=== PATIENT | male | born 1945 | race Caucasian/White ===

== ENCOUNTER → 2016-10-29 | Outpatient (CLI) | payer MEDICARE, MEDICAID ==
--- NOTE | 2016-10-29 11:10 | RADIOLOGY REPORT (SQ) ---
EXAM DESCRIPTION: MRI HEAD COMBO COMPLETED DATE/TIME: 10/29/2016 10:26 am REASON FOR STUDY: DIZZINESS, TIA, SEIZURES R42 DIZZINESS AND GIDDINESS G45.9 TRANSIENT CEREBRAL IS CHEMIC ATTACK, UNSPECIFIED R56.9 UNSPECIFIED CONVULSIONS COMPARISON: Carotid Doppler same date TECHNIQUE: Multiplanar imaging includes noncontrasted T1, T2, FLAIR, diffusion with ADC map and post gadolinium contrast T1 sequences. Images stored on PACS. CONTRAST TYPE AND DOSE: 15 mL Multihance. RENAL FUNCTION: GFR > 60. LIMITATIONS: None. FINDINGS: ANATOMY: No anomalies. Normal vascular flow voids. Pituitary fossa normal. CSF SPACES: Normal in size and contour. No hemorrhage. CEREBRUM: Tiny chronic appearing lacunar infarct in the right caudate on coronal T2 image 13 and axia l T2 image 17. The Sulci and gyri normal in size and contour. Normal white matter signal on FLAIR im aging. No evidence of hemorrhage, mass, or extraaxial fluid collection. No abnormal enhancement post contrast. POSTERIOR FOSSA: No signal alteration. No hemorrhage. No edema, masses, or mass effect. Internal jacobo tory canals, cerebellopontine angles, mastoids normal. No enhancing lesions. No abnormal enhancement post contrast. DIFFUSION IMAGING: Negative for acute or subacute infarction. ORBITS: No masses. Globes post cataract surgery. PARANASAL SINUSES: No fluid levels. Mucosa normal. OTHER: No other significant finding. IMPRESSION: TINY CHRONIC APPEARING LACUNAR INFARCT RIGHT CAUDATE. OTHERWISE, NORMAL MRI OF THE BRAIN WITHOUT AND WITH INTRAVENOUS GADOLINIUM CONTRAST. TECHNICAL DOCUMENTATION: JOB ID: [id number] [employer]- All Rights Reserved
--- NOTE | 2016-10-29 15:03 | CAROTID DOPPLER PRO FEE REPORT ---
CAROTID DUPLEX DOPPLER REPORT [id number] ROOM#: DATE OF STUDY: 10/29/2016 DATE OF : 1945 REFERRING MD: FESTUS BECKHAM M.D. ORDER NO: [id number] TECHNOLOGIST: Gricelda Guzmán INDICATION: Dizziness. STUDY: The color carotid duplex scan was performed with real time images and real time Doppler velocity measurements. Real time images indicated bilateral mild heterogenous plaque formation, regular in nature. Doppler velocity measurements were as follows: MEASUREMENT: RIGHT LEFT CCA PSV (prox/mid) 72 cm/sec 93 cm/sec CCA PSV (distal) 58 cm/sec 26 cm/sec CCA EDV (prox/mid) 19 cm/sec 24 cm/sec CCA EDV (distal) 17 cm/sec 23 cm/sec ICA PSV (proximal) 58 cm/sec 53 cm/sec ICA PSV (distal) 71 cm/sec 84 cm/sec ICA EDV (proximal) 18 cm/sec 14 cm/sec ICA EDV (distal) 27 cm/sec 30 cm/sec ECA 67 cm/sec 78 cm/sec ICA/CCA RATIO: 1.2 on the right and 1.1 on the left. Vertebrals are patent. Flow is cephalad. FINAL IMPRESSION: MILD BILATERAL PLAQUE FORMATION, LESS THAN 50% STENOTIC FLOW. INTERPRETING PHYSICIAN: FESTUS BECKHAM M.D. /: PADMINI TT: [id number] ID: [id number] /: [id number] TD: 1319 JOB: [id number] cc:FESTUS BECKHAM M.D. >
== END ==
LOC: RAD 09:28
PROVIDERS: ATTEND Specialist
DX: R42 Dizziness and giddiness (principal); G45.9 Transient cerebral ischemic attack, unspecified; R56.9 Unspecified convulsions
CPT/HCPCS: 82565; 93880 ×2; 70553; A9577

== ENCOUNTER 2017-12-23 05:17 | Day surgery (SDC) | payer MEDICARE, MEDICAID ==
[2017-12-21 12:38] LABS: HEMATOCRIT 45.4 % (37.9-51.0); HEMOGLOBIN 15.3 g/dL (13.5-17.0); MEAN CORPUSCULAR HEMOGLOBIN 27.4 pg (27.0-33.4); MEAN CORPUSCULAR HGB CONC 33.7 g/dL (32.0-36.0); MEAN CORPUSCULAR VOLUME 82 fl (80-97); PLATELET COUNT 263 10^3/uL (150-450); RED BLOOD COUNT 5.57 10^6/uL (4.35-5.55); RED CELL DISTRIBUTION WIDTH 15.3 % (11.5-14.0); WHITE BLOOD COUNT 10.4 10^3/uL (4.0-10.5)
[2017-12-21 12:39] LABS: AMORPHOUS SEDIMENT,URINE TRACE /HPF; APPEARANCE,URINE CLOUDY; BILIRUBIN,URINE NEGATIVE (NEGATIVE); COLOR,URINE YELLOW; GLUCOSE, URINE NEGATIVE (NEGATIVE); KETONES,URINE NEGATIVE (NEGATIVE); LEUKOCYTE ESTERASE,URINE NEGATIVE (NEGATIVE); NITRITE,URINE NEGATIVE (NEGATIVE); PROTEIN,URINE 30 mg/dL (NEGATIVE)
[2017-12-21 13:00] LABS: ANION GAP 13 (5-19); BLOOD UREA NITROGEN 20 mg/dL (7-20); CALCIUM 9.5 mg/dL (8.4-10.2); CARBON DIOXIDE 31 mmol/L (22-30); CHLORIDE 103 mmol/L (98-107); GLUCOSE 86 mg/dL (75-110); POTASSIUM 4.3 mmol/L (3.6-5.0); SODIUM 146.5 mmol/L (137-145)
--- NOTE | 2017-12-21 14:15 | RADIOLOGY REPORT (SQ) ---
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 TECHNIQUE: Frontal and lateral radiographic views of the chest acquired. LIMITATIONS: None. FINDINGS: LUNGS AND PLEURA: No opacities, masses or pneumothorax. No pleural effusion. Attenuated bl ood vessels and flattened trista-diaphragms. MEDIASTINUM AND HILAR STRUCTURES: No masses. No contour abnormalities. HEART AND VASCULAR STRUCTURES: Heart normal in size and contour. No evidence for failure. BONES: No acute findings. HARDWARE: None in the chest. OTHER: No other significant finding. IMPRESSION: COPD. NO ACUTE RADIOGRAPHIC FINDING IN THE CHEST. TECHNICAL DOCUMENTATION: JOB ID: [id number] [employer]- All Rights Reserved Reading location - IP/workstation name: [facility]
--- NOTE | 2017-12-22 00:15 | EKG REPORT ---
SEVERITY:- ABNORMAL ECG - SINUS RHYTHM LEFT ANTERIOR FASCICULAR BLOCK : Confirmed by: Geovanna Pepper MD 22-Dec-2017 00:14:51
[~2017-12-23 05:17] MED LIST: CEFAZOLIN 2 GM/D5W RTU 2 GM/50 ML RTUPB IV PRN; LACTATED RINGERS 1000 ML IV PRN; LIDOCAINE 0.5% INJ-PF (5 MG/ML) 50 ML SDV SUBCUT PRN
[2017-12-23] MEDS ORDERED: ALBUTEROL SULFATE 0.083% NEB 2.5 MG/3 ML AMPUL NEB ONE (06:21)
[2017-12-23] MEDS ORDERED: BUPIVACAINE HCL 0.5 % INJ/PF 30 ML SDV ONE (06:39)
[2017-12-23] MEDS ORDERED: LIDOCAINE 2% INJ-PF (20 MG/ML) 10 ML AMPUL ONE (06:56)
[2017-12-23] MEDS ORDERED: ACETAMINOPHEN 1,000 MG/100 ML RTUPB IV ONE (06:57)
[2017-12-23] MEDS ORDERED: PROPOFOL INJ 200 MG/20 ML VIAL IV ONE (06:57)
[2017-12-23] MEDS ORDERED: HYDROMORPHONE HCL INJ/PF 2 MG/ML AMPULE ONE (06:57)
[2017-12-23] MEDS ORDERED: MIDAZOLAM 2 MG/2 ML INJ ONE (06:57)
[2017-12-23] MEDS ORDERED: PROMETHAZINE HCL INJ 25 MG/1 ML VIAL IV PRN ×2 (08:16)
[2017-12-23] MEDS ORDERED: MEPERIDINE HCL/PF INJ 25 MG/1 ML DISP.SYRIN IV PRN (08:16)
[2017-12-23] MEDS ORDERED: FENTANYL CITRATE INJ/PF 100 MCG/2 ML AMPUL IV PRN ×3 (08:16)
[2017-12-23] MEDS ORDERED: OXYCODONE-ACETAMINOPHEN 5-325 MG TABLET PO PRN ×3 (08:16→09:44)
[2017-12-23] MEDS ORDERED: DIPHENHYDRAMINE HCL 50 MG/ML VIAL IV PRN (08:16)
[2017-12-23] MEDS ORDERED: ONDANSETRON HCL INJ/PF 4 MG/2 ML SDV IV PRN (08:16)
--- NOTE | 2017-12-23 09:44 | Discharge Summary ---
Discharge Summary (SDC) - Discharge Final Diagnosis: Left cubital tunnel release Date of Surgery: 12/23/17 Discharge Date: 12/23/17 Condition: Good Treatment or Instructions: Sling for comfort. Keep the dressing dry clean and intact for 4 days. Can remove and then take showers. Avoid heavy lifting carrying. Follow-up in 10-14 days. Prescriptions: Tramadol HCl 50 mg PO Q6HP PRN #30 tablet PRN Reason: For Pain Referrals: ROSI VILLALBA MD [Primary Care Provider] - Discharge Diet: As Tolerated Respiratory Treatments at Home: Deep Breathing/Coughing Discharge Activity: No Lifting/Push/Pulling, Slowly Increase Activity, Walk Frequently Home Care Assistance: None Needed Report the Following to Your Physician Immediately: Shortness of Breath, Nausea , Vomiting, Fever over 101 Degrees, Unusual Bleeding, Redness, Swelling, Warmth , Increased Soreness, Drainage-Yellow, Drainage-Harden, Drainage-Green, Drainage- Foul Smelling
[2017-12-23 11:22] VITALS: BP 123/72
[2017-12-23] MEDS ORDERED: DEXAMETHASONE SOD PHOSPHATE INJ 4 MG/1 ML VIAL ONE (14:05)
[2017-12-23] MEDS ORDERED: SUCCINYLCHOLINE CHLORIDE INJ 200 MG/10 ML VIAL ONE (14:05)
[2017-12-23] MEDS ORDERED: ONDANSETRON HCL INJ/PF 4 MG/2 ML SDV ONE (14:05)
[2017-12-23] MEDS ORDERED: METOCLOPRAMIDE HCL INJ/PF 10 MG/2 ML SDV ONE (14:05)
[2017-12-23] MEDS ORDERED: PHENYLEPHRINE HCL INJ/PF 10 MG/1 ML SDV ONE (14:05)
--- NOTE | 2018-01-07 13:01 | Operative Report ---
Operative Report DATE OF SURGERY: 12/23/17 PREOPERATIVE DIAGNOSIS: Left cubital tunnel syndrome POSTOPERATIVE DIAGNOSIS: Same OPERATION: Left ulnar nerve cubital tunnel release and transposition anteriorly SURGEON: JOHANA BEAR ANESTHESIA: GA TISSUE REMOVED OR ALTERED: None COMPLICATIONS: None ESTIMATED BLOOD LOSS: Less than 20 mL INTRAOPERATIVE FINDINGS: As above PROCEDURE: Patient was brought to the operating room where he was induced and intubated in supine position. Left upper extremity was prepped and draped in a normal sterile surgical fashion. Timeout was done identifying the left elbow is a correct site. Sterile tourniquet was applied to left upper extremity. Esmarch was used to exsanguinate the extremity and the tourniquet was inflated at 250 mmHg. A 3 inch incision was done just adjacent to the medial epicondyle. Dissection was done with a 15 blade and then blunt dissection with Metzenbaum scissors to the testes of cutaneous tissue. I was able to dissect down to the medial epicondyle and the conjoined tendon attachment. I was able to palpate the ulnar nerve and dissected proximally and then placed a retractor and slowly released the cubital tunnel off of the bone while protecting the nerve. I was able to release the entire tunnel and then release some of the distally into the muscle belly. When I placed the elbow in flexion the nerve was subluxed therefore decision was made to transpose the ulnar nerve. The other nerve was placed just anterior to the medial epicondyle and subcutaneously. Reapproximated the cubital tunnel to make sure he did not fall back into the old tunnel. I then proceeded to use irrigation to clean the wound and then reapproximate subcutaneous tissue with 0 Vicryl 2-0 Vicryl for the dermis and running subcuticular Monocryl for the skin. Dermabond with Steri-Strips were applied. 4 x 4 dressing and overwrapped with a soft bandage and an Matthew bandage and the tourniquet let down. Drapes were removed and the patient was awoken and sent to PACU in a stable condition.
== END 2017-12-23 11:20 | disposition home or self-care (01) ==
LOC: OROUT 05:17
PROVIDERS: ATTEND Orthopaedic Surgery
DX: G56.22 Lesion of ulnar nerve, left upper limb (principal); M62.81 Muscle weakness (generalized); M75.52 Bursitis of left shoulder; J44.9 Chronic obstructive pulmonary disease, unspecified; F17.210 Nicotine dependence, cigarettes, uncomplicated; I10 Essential (primary) hypertension; I25.2 Old myocardial infarction; E07.9 Disorder of thyroid, unspecified; M10.9 Gout, unspecified; I25.10 Atherosclerotic heart disease of native coronary artery without angina pectoris; G51.0 Bell's palsy; E78.5 Hyperlipidemia, unspecified; Z79.899 Other long term (current) drug therapy; Z86.73 Personal history of transient ischemic attack (TIA), and cerebral infarction without residual deficits; Z01.818 Encounter for other preprocedural examination
CPT/HCPCS: 93005; 36415; 85027; 80048; 81001; 71046; 93010; 64718; J2250; J3490 ×2; J1100; J2765; J1170; J2370; J0330; J2405; J2704; A9270; J0690; J0131; 1810

== ENCOUNTER → 2018-03-18 | Day surgery (SDC) | payer MEDICARE, MEDICAID ==
--- NOTE | 2018-03-18 13:51 | RADIOLOGY REPORT (SQ) ---
EXAM DESCRIPTION: ARTHRO SHOULDER INJECTION; FLUORO/NEEDLE PLACEMENT COMPLETED DATE/TIME: 03/18/2018 1:15 pm REASON FOR STUDY: S43.491D OTHER SPRAIN OF LEFT SHOULDER JOINT, SUBSEQUENT ENCOUNTER S43.491D OTHER SPRAIN OF RIGHT SHOULDER JOINT, SUBSEQUENT EN COMPARISON: None. FLUOROSCOPY TIME: 16 seconds. 1 images saved to PACS. LIMITATIONS: None. PROCEDURE: Procedure, risks, benefits and alternatives explained to patient who then gave written co nsent. The left shoulder was marked and a time out was called for correct procedure verification. Po sterior entry site marked using fluoroscopic guidance. Shoulder prepped and draped using sterile bridget hnique. Local anesthesia achieved using 1% lidocaine injection. Hypodermic needle introduced into t he joint space under direct fluoroscopic visualization. Non-ionic contrast instilled to confirm intra -articular position. Dilute gadolinium solution then injected. Needle removed and entry site covered with sterile bandage. No immediate complications noted. TECHNIQUE: Digital images acquired during fluoroscopy and stored on PACS. Patient immediately take n to the MR suite for additional imaging. INJECTION LOCATION: Posterior left shoulder. CONTRAST TYPE AND AMOUNT: 1 mL Omnipaque and 10 mL Dotarem/Saline mixture. IMPRESSION: SUCCESSFUL NEEDLE PLACEMENT AND INJECTION FOR LEFT SHOULDER MR ARTHROGRAM USING POSTERIO R APPROACH. COMMENT: Quality ID 145: Final reports for procedures using fluoroscopy that document radiation exp osure indices, or exposure time and number of fluorographic images (if radiation exposure indices are not available) TECHNICAL DOCUMENTATION: JOB ID: [id number] [employer]- All Rights Reserved Reading location - IP/workstation name: [facility]
--- NOTE | 2018-03-18 13:51 | RADIOLOGY REPORT (SQ) ---
EXAM DESCRIPTION: ARTHRO SHOULDER INJECTION; FLUORO/NEEDLE PLACEMENT COMPLETED DATE/TIME: 03/18/2018 1:15 pm REASON FOR STUDY: S43.491D OTHER SPRAIN OF LEFT SHOULDER JOINT, SUBSEQUENT ENCOUNTER S43.491D OTHER SPRAIN OF RIGHT SHOULDER JOINT, SUBSEQUENT EN COMPARISON: None. FLUOROSCOPY TIME: 16 seconds. 1 images saved to PACS. LIMITATIONS: None. PROCEDURE: Procedure, risks, benefits and alternatives explained to patient who then gave written co nsent. The left shoulder was marked and a time out was called for correct procedure verification. Po sterior entry site marked using fluoroscopic guidance. Shoulder prepped and draped using sterile bridget hnique. Local anesthesia achieved using 1% lidocaine injection. Hypodermic needle introduced into t he joint space under direct fluoroscopic visualization. Non-ionic contrast instilled to confirm intra -articular position. Dilute gadolinium solution then injected. Needle removed and entry site covered with sterile bandage. No immediate complications noted. TECHNIQUE: Digital images acquired during fluoroscopy and stored on PACS. Patient immediately take n to the MR suite for additional imaging. INJECTION LOCATION: Posterior left shoulder. CONTRAST TYPE AND AMOUNT: 1 mL Omnipaque and 10 mL Dotarem/Saline mixture. IMPRESSION: SUCCESSFUL NEEDLE PLACEMENT AND INJECTION FOR LEFT SHOULDER MR ARTHROGRAM USING POSTERIO R APPROACH. COMMENT: Quality ID 145: Final reports for procedures using fluoroscopy that document radiation exp osure indices, or exposure time and number of fluorographic images (if radiation exposure indices are not available) TECHNICAL DOCUMENTATION: JOB ID: [id number] [employer]- All Rights Reserved Reading location - IP/workstation name: [facility]
--- NOTE | 2018-03-18 14:14 | RADIOLOGY REPORT (SQ) ---
EXAM DESCRIPTION: MRI LT UPPER JOINT WITH COMPLETED DATE/TIME: 03/18/2018 1:41 pm REASON FOR STUDY: S43.491D OTHER SPRAIN OF LEFT SHOULDER JOINT, SUBSEQUENT ENCOUNTER S43.491D OTHER SPRAIN OF RIGHT SHOULDER JOINT, SUBSEQUENT EN COMPARISON: None. TECHNIQUE: Left shoulder images acquired and stored on PACS. Oblique coronal, oblique sagittal, and axial imaging to include fat sensitive sequences as T1, water sensitive sequences as FST2/STIR, and c ontrast sensitive sequences as FST1. LIMITATIONS: Motion. FINDINGS: JOINT DISTENTION: Adequate distention for interpretation. Contrast in the subacromial bur sa. BONE MARROW AND CORTEX: No significant marrow abnormality. AC JOINT: Type II acromion. Mild -moderate AC joint arthropathy. GLENOHUMERAL JOINT: Intact. Central cartilage loss. ROTATOR CUFF: Partial width full-thickness tear of the infraspinatus with contrast in the subacromial bursa. Articular surface perforation and tendinosis in the supraspinatus tendon. LABRUM AND BICEPS LABRAL COMPLEX: There is abnormal signal in the labrum extending from 12-1 o'clock to the posterior inferior labrum. Distal biceps intact. INFERIOR LABRAL COMPLEX: See above. ADJACENT SOFT TISSUES: No masses or nodes. OTHER: No other significant finding. IMPRESSION: 1. Tear involving the posterior inferior labrum superiorly to 12-1 o'clock. 2. Cuff tendinosis. Partial width tear of the infraspinatus. Articular surface perforation of the s upraspinatus. TECHNICAL DOCUMENTATION: JOB ID: [id number] [employer]- All Rights Reserved Reading location - IP/workstation name: [email or web address]
== END ==
LOC: RAD 12:29 → EDSTATUS 13:00
PROVIDERS: ATTEND Orthopaedic Surgery
DX: S43.491D Other sprain of right shoulder joint, subsequent encounter (principal); X58.XXXD Exposure to other specified factors, subsequent encounter
CPT/HCPCS: 73222; 77002; 23350; A9576

== ENCOUNTER 2018-05-19 06:28 | Day surgery (SDC) | payer MEDICARE, MEDICAID ==
[2018-05-11 09:56] LABS: HEMATOCRIT 43.5 % (37.9-51.0); HEMOGLOBIN 14.7 g/dL (13.5-17.0); MEAN CORPUSCULAR HEMOGLOBIN 27.8 pg (27.0-33.4); MEAN CORPUSCULAR HGB CONC 33.7 g/dL (32.0-36.0); MEAN CORPUSCULAR VOLUME 82 fl (80-97); PLATELET COUNT 366 10^3/uL (150-450); RED BLOOD COUNT 5.28 10^6/uL (4.35-5.55); RED CELL DISTRIBUTION WIDTH 13.7 % (11.5-14.0); WHITE BLOOD COUNT 13.7 10^3/uL (4.0-10.5)
[2018-05-11 09:59] LABS: APPEARANCE,URINE SLIGHTLY-CLOUDY; BILIRUBIN,URINE NEGATIVE (NEGATIVE); COLOR,URINE YELLOW; GLUCOSE, URINE NEGATIVE (NEGATIVE); KETONES,URINE NEGATIVE (NEGATIVE); LEUKOCYTE ESTERASE,URINE NEGATIVE (NEGATIVE); NITRITE,URINE NEGATIVE (NEGATIVE); PROTEIN,URINE 30 mg/dL (NEGATIVE); URINE SPECIFIC GRAVITY 1.016
[2018-05-11 10:21] LABS: ANION GAP 14 (5-19); BLOOD UREA NITROGEN 16 mg/dL (7-20); CALCIUM 9.4 mg/dL (8.4-10.2); CARBON DIOXIDE 26 mmol/L (22-30); CHLORIDE 103 mmol/L (98-107); GLUCOSE 158 mg/dL (75-110); POTASSIUM 3.8 mmol/L (3.6-5.0); SODIUM 142.8 mmol/L (137-145)
--- NOTE | 2018-05-11 12:12 | RADIOLOGY REPORT (SQ) ---
EXAM DESCRIPTION: CHEST PA/LATERAL COMPLETED DATE/TIME: 05/11/2018 9:48 am REASON FOR STUDY: PRE-OP COMPARISON: Chest films 01/30/2011, 11/19/2013, 10/15/2015 EXAM PARAMETERS: NUMBER OF VIEWS: two views TECHNIQUE: Digital Frontal and Lateral radiographic views of the chest acquired. RADIATION DOSE: NA LIMITATIONS: none FINDINGS: LUNGS AND PLEURA: Obstructive lung disease with hyperinflation and hyperlucency. There is minimal right basilar bandlike atelectasis. No fluffy alveolar infiltrates worrisome for edema or pneumonia. No pleural effusion or pneumothorax . MEDIASTINUM AND HILAR STRUCTURES: No masses or contour abnormalities. HEART AND VASCULAR STRUCTURES: Heart normal size. No evidence for failure. BONES: Osteoporotic. No thoracic compression deformity HARDWARE: None in the chest. OTHER: No other significant finding. IMPRESSION: Obstructive lung disease with right basilar bandlike atelectasis TECHNICAL DOCUMENTATION: JOB ID: [id number] [email or web address]- All Rights Reserved Reading location - IP/workstation name: [email or web address]
--- NOTE | 2018-05-11 20:50 | EKG REPORT ---
SEVERITY:- ABNORMAL ECG - SINUS RHYTHM INFERIOR INFARCT, AGE INDETERMINATE : Confirmed by: Geovanna Pepper MD 11-May-2018 20:50:22
[2018-05-19] MEDS ORDERED: CEFAZOLIN 2 GM/D5W RTU 2 GM/50 ML RTUPB IV ONE (06:32)
[2018-05-19] MEDS ORDERED: PROPOFOL INJ 200 MG/20 ML VIAL IV ONE (07:03)
[2018-05-19] MEDS ORDERED: HYDROMORPHONE HCL INJ/PF 2 MG/ML AMPULE ONE (07:03)
[2018-05-19] MEDS ORDERED: EPHEDRINE SULFATE INJ 50 MG/1 ML AMPULE ONE (07:03)
[2018-05-19] MEDS ORDERED: ACETAMINOPHEN 1,000 MG/100 ML RTUPB IV ONE (07:03)
[2018-05-19] MEDS ORDERED: FENTANYL CITRATE INJ/PF 100 MCG/2 ML AMPUL ONE (07:03)
[2018-05-19] MEDS ORDERED: MIDAZOLAM 2 MG/2 ML INJ ONE (07:03)
[2018-05-19] MEDS ORDERED: ALBUTEROL SULFATE 0.083% NEB 2.5 MG/3 ML AMPUL NEB ONE (07:10)
[2018-05-19] MEDS ORDERED: BUPIVACAINE HCL 0.5 % INJ/PF 30 ML SDV ONE (09:51)
[2018-05-19] MEDS ORDERED: EPINEPHRINE INJ/PF 1 MG/1 ML AMPULE ONE (09:51)
[2018-05-19] MEDS ORDERED: PROMETHAZINE HCL INJ 25 MG/1 ML VIAL IV PRN ×2 (10:52)
[2018-05-19] MEDS ORDERED: DIPHENHYDRAMINE HCL 50 MG/ML VIAL IV PRN (10:52)
[2018-05-19] MEDS ORDERED: FENTANYL CITRATE INJ/PF 100 MCG/2 ML AMPUL IV PRN ×3 (10:52)
[2018-05-19] MEDS ORDERED: MEPERIDINE HCL/PF INJ 25 MG/1 ML DISP.SYRIN IV PRN (10:52)
[2018-05-19] MEDS ORDERED: MORPHINE SULFATE 10 MG/ML INJ IV PRN (10:52)
[2018-05-19] MEDS ORDERED: OXYCODONE-ACETAMINOPHEN 5-325 MG TABLET PO PRN ×2 (12:30)
--- NOTE | 2018-05-19 12:30 | Discharge Summary ---
Discharge Summary (SDC) - Discharge Final Diagnosis: Left rotator cuff repair and biceps tenodesis Date of Surgery: 05/19/18 Discharge Date: 05/19/18 Condition: Good Treatment or Instructions: Patient is instructed to follow up in 10-14 days. Patient instructed to remove dressing in 4 days then can shower and apply Band- Aids as needed. Patient to wear sling for comfort but okay to remove for shower and pendulum exe rcises. Pendulum exercises are instructed to be done 3 times a day ideally with breakfast, lunch, dinners and showers. Patient instructed to call if there is any signs of redness or drainage fevers or chills. Prescriptions: Oxycodone HCl/Acetaminophen [Percocet 5-325 mg Tablet] 1 - 2 tab PO ASDIR PRN #40 tablet PRN Reason: Referrals: ROSI VILLALBA MD [Primary Care Provider] - Respiratory Treatments at Home: Deep Breathing/Coughing Discharge Activity: No Driving - While taking narcotics, No Lifting/Push/Pulling, Walk Frequently Home Care Assistance: None Needed Report the Following to Your Physician Immediately: Shortness of Breath, Vom iting, Increase in Pain, Fever over 101 Degrees, Unusual Bleeding, Redness, Increased Soreness, Drainage-Yellow, Drainage-Harden, Drainage-Green, Drainage- Foul Smelling
--- NOTE | 2018-05-19 12:35 | Operative Report ---
Operative Report DATE OF SURGERY: 05/19/18 PREOPERATIVE DIAGNOSIS: left shoulder high-grade rotator cuff tear. SLAP tear. Labral tear POSTOPERATIVE DIAGNOSIS: Same OPERATION: Left shoulder arthroscopic debridement with small rotator cuff repair and subpectoralis biceps tenodesis SURGEON: JOHANA BEAR ANESTHESIA: GA TISSUE REMOVED OR ALTERED: Portion of the long head of the biceps COMPLICATIONS: None ESTIMATED BLOOD LOSS: Less than 20 mL INTRAOPERATIVE FINDINGS: As above PROCEDURE: Patient received preoperative antibiotics and was taken to the operating room and successfully given general anesthetic. Once the patient was secured in a beachchair position the left shoulder was prepped and draped in a normal sterile surgical fashion. Timeout was done identifying the left shoulder as the correct site. A spinal needle was used to distend the capsule was dosing solution via the posterior approach. This was removed and the 11 blade was used to establish the posterior portal. Trocar was introduced and with the chatterjee of fluid show proper placement in the glenohumeral joint. Camera was introduced and the capsule was distended with sterilizing solution and the anterior portal was established under direct visualization. Through these anterior portal show that the patient had a high-grade rotator cuff tear and degenerative tearing of the anterior labrum and posterior labrum as well as a type II degenerative SLAP tear with a peelback. She was used to debride the labrum and refill the ablator was used to debride the labrum and then arthroscopic scissors were used to biceps tenotomy. I used the shaver also to debride the rotator cuff showing the partial high-grade tear. Through a lateral portal incision was able then to debris to further and the completed and make it a full tear. There was a small anterior tear of the supraspinatus tendon. I redirected the camera to the subacromial space and did a formal bursectomy. Through this portal also visualized and showed due to small rotator cuff tear. I used a fast pass scorpion to pass my fiber tape and passed both limbs through the rotator cuff and then secured it laterally with a swivel lock. Patient was taken of the repair and arthroscopic scissors were used to cut the strands. Happy with the fixation and the repair with a small rotator cuff tear so then removed the instruments and proceeded to do my 1 inch incision on the anterior aspect of the arm. Patient was taken down to the fascial layer and exposing the bicipital groove and the deltoid and pectoral attachment. I was able to successfully release the fascial tissue and I pulled the long head of biceps through my incision. I used a fiber loop to then secure the tendon from the muscular tendinous junction to about 2 cm proximal. The remaining tendon was cut and removed. The 2 strands of the fiber wire were then passed through the tenodesis button and loading and securely safely. I then proceeded to use Homans to expose the medial lateral aspect of the humerus and an [employer] to pull up on the deltoid and with a 4.0 spade tip guidepin was able to drilled a hole in the anterior cortex. Through this anterior cortex I fed the preloaded tenodesis button and successfully deployed and secured the spine intramedullary therefore securing the biceps onto the anterior cortex. Half hitch knots were done to secure the tendon further. FiberWire scissors were used to cut the remaining strands. Irrigation was used and then closure was started. 2-0 Vicryl was used to approximate the dermal layer and a 3-0 nylon for skin. The portal sites were closed with 3-0 nylon as well. The extremity was cleaned and Xeroform dressing was applied to the incisions and 4 x 4 dressing and ABD pad was applied. This was secured with Medipore tape and at that point the drapes were removed and the patient was placed in supine position and extubated successfully. Patient was placed in a sling and then sent to PACU in a stable condition.
[2018-05-19] MEDS ORDERED: OXYCODONE-ACETAMINOPHEN 5-325 MG TABLET ONE (13:30)
[2018-05-19] MEDS ORDERED: ONDANSETRON HCL INJ/PF 4 MG/2 ML SDV ONE (13:47)
[2018-05-19] MEDS ORDERED: KETOROLAC TROMETHAMINE 60 MG/2 ML SDV ONE (13:47)
[2018-05-19] MEDS ORDERED: DEXAMETHASONE SOD PHOSPHATE INJ 4 MG/1 ML VIAL ONE (13:47)
[2018-05-19] MEDS ORDERED: SUCCINYLCHOLINE CHLORIDE INJ 200 MG/10 ML VIAL ONE (13:47)
[2018-05-19 16:44] VITALS: BP 134/79
== END 2018-05-19 14:50 | disposition home or self-care (01) ==
LOC: OROUT 06:28
PROVIDERS: ATTEND Orthopaedic Surgery
DX: M75.122 Complete rotator cuff tear or rupture of left shoulder, not specified as traumatic (principal); S43.492A Other sprain of left shoulder joint, initial encounter; Z79.01 Long term (current) use of anticoagulants; J44.9 Chronic obstructive pulmonary disease, unspecified; I10 Essential (primary) hypertension; M54.12 Radiculopathy, cervical region; E78.5 Hyperlipidemia, unspecified; Z79.899 Other long term (current) drug therapy; Z86.69 Personal history of other diseases of the nervous system and sense organs; H91.92 Unspecified hearing loss, left ear; Z72.0 Tobacco use; X58.XXXA Exposure to other specified factors, initial encounter
CPT/HCPCS: 93005; 36415; 85027; 80048; 81001; 71046; 93010; 29827; 29828; C1713 ×3; J2250; J3490 ×2; J1100; J0171; J1885; A9270 ×2; J1170; J0330; J2405; J2704; J0690; J0131; 1630; J3010

== ENCOUNTER → 2018-11-26 | Outpatient (CLI) | payer MEDICARE, MEDICAID ==
--- NOTE | 2018-11-26 18:02 | RADIOLOGY REPORT (SQ) ---
EXAM DESCRIPTION: MRI CERVICAL SPINE WITHOUT COMPLETED DATE/TIME: 11/26/2018 10:28 am REASON FOR STUDY: (M54.12)RADICULOPATHY, CERVICAL REGION M54.12 RADICULOPATHY, CERVICAL REGION COMPARISON: None. TECHNIQUE: Sagittal and Axial imaging includes T1, T2, STIR and gradient echo sequences. LIMITATIONS: None. FINDINGS: ALIGNMENT: Normal. VERTEBRAE: Intact. BONE MARROW: Normal. No marrow replacement or reactive changes. DISCS: Multilevel diminished disc signal with small disc osteophyte complexes. HARDWARE: None in the spine. CORD AND BASE OF BRAIN: Inferior brain normal. The spinal cord is diffusely abnormal. Hyperintense T2 signal within the substance of the cord beginning at C2 and extending inferiorly throughout the vi sualized extent. The lower thoracic cord looks expanded and largely replaced by cystic signal. SOFT TISSUES: No soft tissue masses. C1-C2: No significant spinal stenosis. C2-C3: No significant spinal stenosis or exit foraminal stenosis. C3-C4: Mild disc osteophyte complex without central stenosis. Mild right and marked left foraminal s tenosis. C4-C5: Moderate right and marked left foraminal stenosis. C5-C6: Disc and facet disease without cord compression or high-grade central narrowing. At least mod erate bilateral foraminal stenosis. C6-C7: Disc osteophyte complex without cord compression or high-grade central narrowing. Grossly mod erate foraminal stenosis. C7-T1: No significant spinal stenosis or exit foraminal stenosis. UPPER THORACIC: Incompletely imaged. No significant spinal stenosis or exit foraminal stenosis. OTHER: No other significant finding. IMPRESSION: 1. Extensive cord abnormality. Apparent syrinx extending from C2 inferiorly into the thoracic region , full extent not evaluated. Further MRI evaluation of the thoracic cord may be warranted. Unless t he patient has previous imaging to correlate for stability, additional post contrast imaging of the t horacic and cervical spine may also be indicated. 2. No spinal stenosis. Multilevel foraminal encroachment. TECHNICAL DOCUMENTATION: JOB ID: [id number] [email or web address]- All Rights Reserved Reading location - IP/workstation name: [email or web address]
== END ==
LOC: RAD 09:55
PROVIDERS: ATTEND Orthopaedic Surgery
DX: M54.12 Radiculopathy, cervical region (principal)
CPT/HCPCS: 72141

== ENCOUNTER → 2019-01-11 | Outpatient (CLI) | payer MEDICARE, MEDICAID ==
--- NOTE | 2019-01-11 12:32 | RADIOLOGY REPORT (SQ) ---
EXAM DESCRIPTION: MRI HEAD WITHOUT COMPLETED DATE/TIME: 01/11/2019 9:46 am REASON FOR STUDY: SYRINGOMYELIA AND SYRINGOBULBIA G95.0 SYRINGOMYELIA AND SYRINGOBULBIA COMPARISON: 10/29/2016 TECHNIQUE: Multiplanar imaging includes non-contrasted T1, T2, FLAIR, and diffusion with ADC map seq uences. Images stored on PACS. LIMITATIONS: None. FINDINGS: ANATOMY: No anomalies. Normal vascular flow voids. Pituitary fossa normal. CSF SPACES: Normal in size and contour. No hemorrhage. CEREBRUM: Sulci and gyri normal in size and contour. There is a tiny lacunar infarction in the cauda te on the right, unchanged. Normal white matter signal on FLAIR imaging. No evidence of hemorrhage, mass, or extraaxial fluid collection. POSTERIOR FOSSA: No signal alteration. No hemorrhage. No edema, masses or mass effect. Internal jacobo tory canals, cerebello-pontine angles, mastoids normal. DIFFUSION IMAGING: Negative for acute or sub-acute infarction. ORBITS: No masses. Globes normal. PARANASAL SINUSES: No fluid levels. Mucosa normal. OTHER: No other significant finding. IMPRESSION: Tiny pre-existing lacunar infarction in the caudate on the right. The study is otherwis e normal. EVIDENCE OF ACUTE STROKE: NO. TECHNICAL DOCUMENTATION: JOB ID: [id number] [employer]- All Rights Reserved Reading location - IP/workstation name: [email or web address]
== END ==
LOC: RAD 09:01
PROVIDERS: ATTEND Neurological Surgery
DX: G95.0 Syringomyelia and syringobulbia (principal)
CPT/HCPCS: 70551

== ENCOUNTER 2019-01-30 09:58 | Observation (INO) | payer MEDICARE, MEDICAID ==
[2019-01-30] MEDS ORDERED: NORMAL SALINE 1000 ML 1,000 ML IV ONE (10:37)
--- NOTE | 2019-01-30 10:39 | ER Document Report ---
ED Medical Screen (RME) - General Chief Complaint: Dizziness Stated Complaint: DIZZY Time Seen by Provider: 01/30/19 10:29 Primary Care Provider: MAN PARRA MD [Primary Care Provider] - Follow up as needed Notes: Patient is a 73-year-old male with a history of [place], COPD, hypertension high cholesterol presents to the emergency department today with a chief complaint of dizziness. Patient states around 930 this morning he was checking out at a store when he had acute onset of dizziness. Patient states he did take a nitroglycerin that he is prescribed for chest pain which did seem to help with his dizziness. Patient states the dizziness has since improved but still present at times. Patient reports he has had diarrhea for the past 2 days and reports a lot of gas and liquid stool every 2-3 hours. Patient denies blood in his stool. Patient denies chest pain or shortness of breath. Patient reports he did have a donut for breakfast this morning. TRAVEL OUTSIDE OF THE [place] IN LAST 30 DAYS: No - Related Data Allergies/Adverse Reactions: No Known Allergies Allergy (Verified 01/30/19 09:58) Past Medical History - Social History Frequency of alcohol use: None Drug Abuse: None - Past Medical History Cardiac Medical History: Reports: Hx Heart Attack - 4 YEARS AGO, Hx Hypercholesterolemia, Hx Hypertension Denies: Hx Coronary Artery Disease - HIGH CHOL Pulmonary Medical History: Reports: Hx COPD, Hx Pneumonia - HX OF Denies: Hx Asthma, Hx Bronchitis Neurological Medical History: Denies: Hx Cerebrovascular Accident, Hx Seizures GI Medical History: Denies: Hx Hepatitis, Hx Hiatal Hernia, Hx Ulcer Musculoskeltal Medical History: Reports Hx Arthritis Infectious Medical History: Denies: Hx Hepatitis Past Surgical History: Reports: Hx Appendectomy, Hx Oral Surgery. Denies: Hx Open Heart Surgery, Hx Pacemaker - Immunizations Hx Diphtheria, Pertussis, Tetanus Vaccination: Yes History of Influenza Vaccine for 02/2017 - 07/2017 Season: No Physical Exam - Vital signs Vitals: Temp Pulse Resp BP Pulse Ox 97.5 F 85 20 115/68 93 01/30/19 10:08 01/30/19 10:08 01/30/19 10:08 01/30/19 10:08 01/30/19 10:08 - Abdominal Inspection: Normal Distension: No distension Bowel sounds: Hyperactive Tenderness: Nontender Organomegaly: No organomegaly Course - Re-evaluation Re-evalutation: 01/30/19 10:38 I have greeted and performed a rapid initial assessment of this patient. A comprehensive ED assessment and evaluation of the patient, analysis of test results and completion of the medical decision making process will be conducted by additional ED providers. - Vital Signs Vital signs: Temp Pulse Resp BP Pulse Ox 97.5 F 85 20 115/68 93 01/30/19 10:08 01/30/19 10:08 01/30/19 10:08 01/30/19 10:08 01/30/19 10:08 Doctor's Discharge - Discharge Referrals: MAN PARRA MD [Primary Care Provider] - Follow up as needed
[2019-01-30 11:24] LABS: ABSOLUTE BASOPHILS # (AUTO) 0.1 10^3/uL (0.0-0.2); ABSOLUTE EOSINOPHILS # (AUTO) 0.5 10^3/uL (0.0-0.6); ABSOLUTE LYMPHOCYTES (AUTO) 2.4 10^3/uL (0.5-4.7); ABSOLUTE MONOCYTES (AUTO) 1.1 10^3/uL (0.1-1.4); ABSOLUTE NEUT (AUTO) 5.2 10^3/uL (1.7-8.2); BASOPHILS % (AUTO) 1.2 % (0-2); EOSINOPHILS % (AUTO) 5.2 % (0-6); HEMATOCRIT 44.1 % (37.9-51.0); HEMOGLOBIN 14.8 g/dL (13.5-17.0); LYMPHOCYTES % (AUTO) 25.8 % (13-45); MEAN CORPUSCULAR HEMOGLOBIN 27.5 pg (27.0-33.4); MEAN CORPUSCULAR HGB CONC 33.6 g/dL (32.0-36.0); MEAN CORPUSCULAR VOLUME 82 fl (80-97); MONOCYTES % (AUTO) 11.5 % (3-13); PLATELET COUNT 274 10^3/uL (150-450); RED BLOOD COUNT 5.38 10^6/uL (4.35-5.55); RED CELL DISTRIBUTION WIDTH 13.9 % (11.5-14.0); SEGMENTED NEUTROPHILS % (AUTO) 56.3 % (42-78); TOTAL CELLS COUNTED % (AUTO) 100 %; WHITE BLOOD COUNT 9.2 10^3/uL (4.0-10.5)
--- NOTE | 2019-01-30 11:33 | ER Document Report ---
ED General - General Chief Complaint: Dizziness Stated Complaint: DIZZY Time Seen by Provider: 01/30/19 10:29 Notes: 73-year-old male with a smoking history as well as hypertension hyperlipidemia presents with an episode of dizziness. He was at the hardware store felt like he was going to fall over. He had to grab onto the counter to stay up. He also says that his right leg felt like it was slipping and sliding on the ground. Did not happen to his left leg, or his other extremities. It lasted about an hour and a half and is now improving in the ED. He denies blurry vision or headache nausea vomiting or numbness or tingling. Tell me that he was diagnosed "with fluid in my spinal canal." He has no idea what this means or why. TRAVEL OUTSIDE OF THE [place] IN LAST 30 DAYS: No - Related Data Allergies/Adverse Reactions: No Known Allergies Allergy (Verified 01/30/19 09:58) Past Medical History - Social History Smoking Status: Current Every Day Smoker Frequency of alcohol use: None Drug Abuse: None Family History: Reviewed & Not Pertinent Patient has suicidal ideation: No Patient has homicidal ideation: No - Past Medical History Cardiac Medical History: Reports: Hx Heart Attack - 4 YEARS AGO, Hx Hypercholesterolemia, Hx Hypertension Denies: Hx Coronary Artery Disease - HIGH CHOL Pulmonary Medical History: Reports: Hx COPD, Hx Pneumonia - HX OF Denies: Hx Asthma, Hx Bronchitis Neurological Medical History: Denies: Hx Cerebrovascular Accident, Hx Seizures GI Medical History: Denies: Hx Hepatitis, Hx Hiatal Hernia, Hx Ulcer Musculoskeletal Medical History: Reports Hx Arthritis Infectious Medical History: Denies: Hx Hepatitis Past Surgical History: Reports: Hx Appendectomy, Hx Oral Surgery. Denies: Hx Open Heart Surgery, Hx Pacemaker - Immunizations Hx Diphtheria, Pertussis, Tetanus Vaccination: Yes Hx Pneumococcal Vaccination: 02/28/17 Review of Systems - Review of Systems Notes: REVIEW OF SYSTEMS GEN: Denies fever, chills, weight loss ENT: Denies sore throat, nasal discharge, ear pain EYES: Denies blurry vision, eye pain, discharge CV: Denies chest pain, palpitations, edema RESP: Denies cough, shortness of breath, wheezing GI: Denies abdominal pain, nausea, vomiting, diarrhea MSK: Denies joint pain/swelling, edema, SKIN: Denies rash, skin lesions LYMPH: Denies swollen glands/lymph nodes NEURO: Right leg weakness versus and coordination dizziness PSYCH: Denies depression, suicidal or homicidal ideation PHYSICAL EXAMINATION General: No acute distress, well-nourished Head: Atraumatic, normocephalic ENT: Mouth normal, oropharynx moist, no exudates or tonsillar enlargement Eyes: Conjunctiva normal, pupils equal, lids normal Neck: No JVD, supple, no guarding CVS: Normal rate, regular rhythm, no murmurs Resp: No resp distress, equal and normal breath sounds bilaterally GI: Nondistended, soft, no tenderness to palpation, no rebound or guarding Ext: No deformities, no edema, normal range of motion in upper and lower ext Back: No CVA or midline TTP Skin: No rash, warm Lymphatic: No lymphadeopathy noted Neuro: Awake, alert. Face symmetric. GCS 15. Cranial nerves II through XII intact. No nystagmus. No dysmetria or dysdiadochokinesia, normal rapid altering movements and normal strength sensationin all 4 extremities. Physical Exam - Vital signs Vitals: Temp Pulse Resp BP Pulse Ox 97.5 F 85 20 115/68 93 01/30/19 10:01/30/19 10:01/30/19 10:01/30/19 10:08 01/30/19 10:08 Course - Re-evaluation Re-evalutation: 01/30/19 11:33 Patient presents with episode of what sounds like vertigo with right lower extreme the symptoms which could either have been weakness or incoordination. I am concerned mostly for a posterior circulation TIA. Will get head CT CTA head and neck. If negative patient will be transferred for MRI. Does not meet criteria for stroke lysis at this time. Is not on blood thinners with no A. fib. He does have multiple risk factors for stroke. 01/30/19 13:14 Imaging is negative. The patient's symptoms did not recur and his stroke score is 0. He was discussed with Dr. Shaikh for admission for TIA work-up Georgina - Vital Signs Vital signs: Temp Pulse Resp BP Pulse Ox 97.5 F 85 20 115/68 93 01/30/19 10:08 01/30/19 10:08 01/30/19 10:08 01/30/19 10:08 01/30/19 10:08 - Laboratory Result Diagrams: 01/30/19 10:58 01/30/19 10:58 Laboratory results interpreted by me: 01/30/19 10:58 Alkaline Phosphatase 153 H - Diagnostic Test Radiology reviewed: Pending, Image reviewed, Reports reviewed Discharge - Discharge Clinical Impression: TIA (transient ischemic attack) Condition: Good Disposition: ADMITTED OBSERVATION Admitting Provider: Georgina (Hospitalist) Unit Admitted: Telemetry
[2019-01-30 11:38] LABS: ALBUMIN 4.2 g/dL (3.5-5.0); ALKALINE PHOSPHATASE 153 U/L (38-126); ANION GAP 9 (5-19); ASPARTATE AMINO TRANSFERASE 32 U/L (17-59); BILIRUBIN,DIRECT 0.3 mg/dL (0.0-0.4); BILIRUBIN,TOTAL 0.8 mg/dL (0.2-1.3); BLOOD UREA NITROGEN 19 mg/dL (7-20); CALCIUM 9.7 mg/dL (8.4-10.2); CARBON DIOXIDE 28 mmol/L (22-30); CHLORIDE 104 mmol/L (98-107); GLUCOSE 106 mg/dL (75-110); POTASSIUM 4.7 mmol/L (3.6-5.0); TOTAL PROTEIN 8.2 g/dL (6.3-8.2)
--- NOTE | 2019-01-30 12:29 | RADIOLOGY REPORT (SQ) ---
EXAM DESCRIPTION: CTA HEAD; CTA NECK COMPLETED DATE/TIME: 01/30/2019 12:16 pm REASON FOR STUDY: stroke COMPARISON: None. TECHNIQUE: Axial dynamic scanning technique with dynamic contrast enhancement through the extra-scrap metal burner nial carotid and vertebral arteries and [place] of [place]. Multiplanar reconstruction. 3-D MIPS and Volume-rendered images acquired at the workstation and saved to PACS. Images are reviewed in soft tissue, bone, lung windows. All CT scanners at this facility use dose modulation, iterative reconstruction, and/or weight based d osing when appropriate to reduce radiation dose to as low as reasonably achievable (ALARA). [facility]: Dose Right [facility]: CareDose [facility]: Dose Right [facility]: Teradose 4D [facility]: [email or web address] CONTRAST TYPE AND DOSE: contrast/concentration: Isovue 350.00 mg/ml; Total Contrast Delivered: 70.0 ml; Total Saline Delivered: 75.0 ml RENAL FUNCTION: GFR > 60. LIMITATIONS: None. FINDINGS: CTA neck -atherosclerotic aorta without gross aneurysm or dissection, limited evaluation. - normal 3 vessel origin. - bilateral common, internal and external carotid arteries are patent without suggestion of significa nt stenosis or dissection. - bilateral patent vertebral arteries. - upper lobe emphysema and scarring. Soft tissues generally normal allowing for shotty neck nodes. CTA ven[place] of [place] - cerebral arteries and basilar artery look patent without gross evidence of aneurysm, stenosis or oc clusion. No enhancing lesions. OTHER: 3-D reconstructions confirm findings. IMPRESSION: 1. No carotid stenosis or dissection bilaterally. 2. No cerebral artery occlusion or aneurysm suggested. COMMENT: Quality ID #[id number]: Measurements of distal internal carotid diameter were used as the denomina tor for stenosis measurement. TECHNICAL DOCUMENTATION: JOB ID: [id number] Quality ID # 436: Final reports with documentation of one or more dose reduction techniques (e.g., Au tomated exposure control, adjustment of the mA and/or kV according to patient size, use of iterative reconstruction technique) 2010 [employer]- All Rights Reserved Reading location - IP/workstation name: [email or web address]
--- NOTE | 2019-01-30 12:29 | RADIOLOGY REPORT (SQ) ---
EXAM DESCRIPTION: CTA HEAD; CTA NECK COMPLETED DATE/TIME: 01/30/2019 12:16 pm REASON FOR STUDY: stroke COMPARISON: None. TECHNIQUE: Axial dynamic scanning technique with dynamic contrast enhancement through the extra-bottom crane operator nial carotid and vertebral arteries and [place] of [place]. Multiplanar reconstruction. 3-D MIPS and Volume-rendered images acquired at the workstation and saved to PACS. Images are reviewed in soft tissue, bone, lung windows. All CT scanners at this facility use dose modulation, iterative reconstruction, and/or weight based d osing when appropriate to reduce radiation dose to as low as reasonably achievable (ALARA). [facility]: Dose Right [facility]: CareDose [facility]: Dose Right [facility]: Teradose 4D [facility]: [employer] CONTRAST TYPE AND DOSE: contrast/concentration: Isovue 350.00 mg/ml; Total Contrast Delivered: 70.0 ml; Total Saline Delivered: 75.0 ml RENAL FUNCTION: GFR > 60. LIMITATIONS: None. FINDINGS: CTA neck -atherosclerotic aorta without gross aneurysm or dissection, limited evaluation. - normal 3 vessel origin. - bilateral common, internal and external carotid arteries are patent without suggestion of significa nt stenosis or dissection. - bilateral patent vertebral arteries. - upper lobe emphysema and scarring. Soft tissues generally normal allowing for shotty neck nodes. CTA mentasta of [place] - cerebral arteries and basilar artery look patent without gross evidence of aneurysm, stenosis or oc clusion. No enhancing lesions. OTHER: 3-D reconstructions confirm findings. IMPRESSION: 1. No carotid stenosis or dissection bilaterally. 2. No cerebral artery occlusion or aneurysm suggested. COMMENT: Quality ID #195: Measurements of distal internal carotid diameter were used as the denomina tor for stenosis measurement. TECHNICAL DOCUMENTATION: JOB ID: [id number] Quality ID # 436: Final reports with documentation of one or more dose reduction techniques (e.g., Au tomated exposure control, adjustment of the mA and/or kV according to patient size, use of iterative reconstruction technique) 2010 [employer]- All Rights Reserved Reading location - IP/workstation name: [email or web address]
--- NOTE | 2019-01-30 12:34 | RADIOLOGY REPORT (SQ) ---
EXAM DESCRIPTION: CT HEAD WITHOUT COMPLETED DATE/TIME: 01/30/2019 12:16 pm REASON FOR STUDY: stroke COMPARISON: Correlated with CTA neck and head studies from same date. TECHNIQUE: Axial images acquired through the brain without intravenous contrast. Images reviewed wi th bone, brain and subdural windows. Additional sagittal and coronal reconstructions were generated. Images stored on PACS. All CT scanners at this facility use dose modulation, iterative reconstruction, and/or weight based d osing when appropriate to reduce radiation dose to as low as reasonably achievable (ALARA). [facility]: Dose Right [facility]: CareDose [facility]: Dose Right [facility]: Teradose 4D [facility]: [employer] RADIATION DOSE: CT Rad equipment meets quality standard of care and radiation dose reduction techniq ues were employed. CTDIvol: 53.2 mGy. DLP: 991 mGy-cm. mGy. LIMITATIONS: None. FINDINGS: VENTRICLES: Normal size and contour. CEREBRUM: No masses. No hemorrhage. No midline shift. No evidence for acute infarction. Normal gra y/white matter differentiation. No areas of low density in the white matter. CEREBELLUM: No masses. No hemorrhage. No alteration of density. No evidence for acute infarction. EXTRAAXIAL SPACES: No fluid collections. No masses. ORBITS AND GLOBE: No intra- or extraconal masses. Normal contour of globe without masses. CALVARIUM: No fracture. PARANASAL SINUSES: No fluid or mucosal thickening. SOFT TISSUES: No mass or hematoma. OTHER: No other significant finding. IMPRESSION: NORMAL BRAIN CT WITHOUT CONTRAST. EVIDENCE OF ACUTE STROKE: NO. COMMENT: Quality ID # 436: Final reports with documentation of one or more dose reduction techniques (e.g., Automated exposure control, adjustment of the mA and/or kV according to patient size, use of iterative reconstruction technique) TECHNICAL DOCUMENTATION: JOB ID: [id number] [employer]- All Rights Reserved Reading location - IP/workstation name: [email or web address]
[2019-01-30 12:41] LABS: APPEARANCE,URINE CLEAR; BILIRUBIN,URINE NEGATIVE (NEGATIVE); COLOR,URINE YELLOW; GLUCOSE, URINE NEGATIVE (NEGATIVE); KETONES,URINE NEGATIVE (NEGATIVE); LEUKOCYTE ESTERASE,URINE NEGATIVE (NEGATIVE); NITRITE,URINE NEGATIVE (NEGATIVE); PROTEIN,URINE NEGATIVE (NEGATIVE); URINE SPECIFIC GRAVITY 1.011; UROBILINOGEN,URINE NEGATIVE mg/dL (<2.0)
[2019-01-30] MEDS: HEPARIN SOD (PORCINE) 5,000 UNIT/ML 1 ML VIAL SUBCUT SCH ×2 (14:16→21:13)
--- NOTE | 2019-01-30 14:20 | PDOC H&P ---
History of Present Illness Admission Date/PCP: 01/30/19 13:12 ROSI VILLALBA History of Present Illness: MYLES WARE is a 73 year old male with a history of COPD, current everyday smoker, hypertension, hyperlipidemia. He presents to the ER via private vehicle complaining of dizziness and weakness. He said he was at [employer] buying a table saw and when he was walking up to the counter to pay for it he said that he felt like his right foot kept slipping on the floor whenever he said it down. He looked down to the floor to see if it was wet but he could not see any evide nce of water or liquid on the floor. He said when he got up to the sanchez register, his legs got very wobbly and he got very dizzy. For some reason, he decided to take a nitroglycerin. He said he had that because he had a doctor tell him that years ago he had a heart attack. He did not have any chest pain whenever this episode happened. He managed to hang on to the cart and get the table saw out to his truck. He said he called a friend to come get him and his took the truck and his friend brought him to the ER. He said he thinks that the symptoms lasted in total about 45 minutes. He is never had anything like this happen before. He has no family history of stroke. His vital signs in the ER were normal. He is being admitted for further evaluation. Past Medical History Cardiac Medical History: Reports: Myocardial Infarction - 4 YEARS AGO, Hyperlipidema, Hypertension Denies: Coronary Artery Disease - HIGH CHOL Pulmonary Medical History: Reports: Chronic Obstructive Pulmonary Disease (COPD), Pneumonia - HX OF Denies: Asthma, Bronchitis Neurological Medical History: Denies: Seizures GI Medical History: Denies: Hepatitis, Hiatal Hernia Musculoskeltal Medical History: Reports: Arthritis Hematology: Denies: Anemia, Sickle Cell Disease Past Surgical History Past Surgical History: Reports: Appendectomy Denies: Pacemaker Social History Smoking Status: Current Every Day Smoker Frequency of Alcohol Use: None - Has not had a drink in 27 years Hx Recreational Drug Use: No Family History Family History: Reviewed & Not Pertinent, CAD, COPD, Hyperlipidemia, Hypertension Parental Family History Reviewed: Yes - Father in 60s of CAD, mother had alcoholism treatment early in life Children Family History Reviewed: Yes - Hypertension, hyperlipidemia Sibling(s) Family History Reviewed.: Yes - Hypertension, hyperlipidemia, substance abuse Medication/Allergy Home Medications: Atorvastatin Calcium [Lipitor 40 mg Tablet] 40 mg PO QHS 01/30/19 Cholecalciferol (Vitamin D3) [Vitamin D3 1000 Unit Tablet] 1,000 unit PO DAILY 01/30/19 Clonidine HCl [Catapres 0.2 mg Tablet] 0.2 mg PO DAILY 01/30/19 Losartan Potassium [Cozaar 100 mg Tablet] 100 mg PO DAILY 01/30/19 Allergies/Adverse Reactions: No Known Allergies Allergy (Verified 01/30/19 09:58) Review of Systems All systems: reviewed and no additional remarkable complaints except as stated - All systems were reviewed and were negative except as noted in the HPI Physical Exam Vital Signs: Temp Pulse Resp BP Pulse Ox 97.5 F 85 20 147/87 H 97 01/30/19 10:08 01/30/19 10:08 01/30/19 13:01 01/30/19 13:01 01/30/19 13:01 Intake & Output 01/29/19 01/30/19 01/31/19 06:59 06:59 06:59 Intake Total 1000 Balance 1000 Weight 75.9 kg General appearance: PRESENT: no acute distress, cooperative, disheveled Head exam: PRESENT: atraumatic, normocephalic Eye exam: PRESENT: EOMI, PERRLA. ABSENT: conjunctival injection, nystagmus, scleral icterus Ear exam: PRESENT: normal external ear exam Mouth exam: PRESENT: moist, neck supple Teeth exam: PRESENT: poor dentation Throat exam: ABSENT: post pharyngeal erythema Neck exam: PRESENT: full ROM. ABSENT: carotid bruit, JVD, lymphadenopathy, meningismus, tenderness, thyromegaly Respiratory exam: PRESENT: clear to auscultation marb[place], symmetrical, unlabored. ABSENT: accessory muscle use, chest wall tenderness, crackles, prolonged expiratory phas, rhonchi, tachypnea, wheezes Cardiovascular exam: PRESENT: RRR, +S1, +S2 Pulses: PRESENT: normal carotid pulses Vascular exam: PRESENT: normal capillary refill GI/Abdominal exam: PRESENT: normal bowel sounds, soft. ABSENT: distended, guarding, rebound, tenderness Extremities exam: ABSENT: clubbing, pedal edema Musculoskeletal exam: PRESENT: normal inspection. ABSENT: deformity Neurological exam: PRESENT: alert, awake, oriented to person, oriented to place, oriented to time, oriented to situation, CN II-XII grossly intact. ABSENT: motor sensory deficit Psychiatric exam: PRESENT: appropriate affect, normal mood Skin exam: PRESENT: dry, warm Results Laboratory Results: 01/30/19 10:58 01/30/19 10:58 01/30/19 01/30/19 01/30/19 10:58 10:58 12:24 WBC 9.2 RBC 5.38 Hgb 14.8 Hct 44.1 MCV 82 MCH 27.5 MCHC 33.6 RDW 13.9 Plt Count 274 Seg Neutrophils % 56.3 Sodium 140.5 Potassium 4.7 Chloride 104 Carbon Dioxide 28 Anion Gap 9 BUN 19 Creatinine 1.09 Est GFR ( Amer) > 60 Glucose 106 Calcium 9.7 Total Bilirubin 0.8 AST 32 Alkaline Phosphatase 153 H Total Protein 8.2 Albumin 4.2 Urine Color YELLOW Urine Appearance CLEAR Urine pH 6.0 Ur Specific [place] 1.011 Urine Protein NEGATIVE Urine Glucose (UA) NEGATIVE Urine Ketones NEGATIVE Urine Blood NEGATIVE Urine Nitrite NEGATIVE Ur Leukocyte Esterase NEGATIVE Urine WBC (Auto) 1 Urine RBC (Auto) 0 01/30/19 10:58 Troponin I < 0.012 Impressions: Head CT 01/30/19 11:30 IMPRESSION: NORMAL BRAIN CT WITHOUT CONTRAST. EVIDENCE OF ACUTE STROKE: NO. Head CTA 01/30/19 11:30 IMPRESSION: 1. No carotid stenosis or dissection bilaterally. 2. No cerebral artery occlusion or aneurysm suggested. Neck CTA 01/30/19 11:30 IMPRESSION: 1. No carotid stenosis or dissection bilaterally. 2. No cerebral artery occlusion or aneurysm suggested. Assessment and Plan - Diagnosis (1) TIA (transient ischemic attack) Is this a current diagnosis for this admission?: Yes Plan: We will continue aspirin and statin. We will watch his blood pressure. Check a lipid panel. CT without contrast of the head was negative. Head and neck CTA were negative. Get an MRI of the brain. We will get a carotid Doppler ultrasound. Have him seen by PT, OT, and speech therapy. Strongly encouraged him to stop smoking. - Time Time Spent with patient: 35 or more minutes
[2019-01-30] MEDS ORDERED: NICOTINE 21 MG/24 HR PATCH.TD24 TD ONE (18:30)
[2019-01-30] MEDS ORDERED: ATORVASTATIN CALCIUM 40 MG TABLET PO SCH (22:00)
[2019-01-31] MEDS: HEPARIN SOD (PORCINE) 5,000 UNIT/ML 1 ML VIAL SUBCUT SCH (05:36)
[2019-01-31] MEDS ORDERED: ACETAMINOPHEN 325 MG TABLET PO PRN (05:50)
[2019-01-31 06:11] LABS: HEMATOCRIT 42.9 % (37.9-51.0); HEMOGLOBIN 14.5 g/dL (13.5-17.0); MEAN CORPUSCULAR HEMOGLOBIN 27.7 pg (27.0-33.4); MEAN CORPUSCULAR HGB CONC 33.7 g/dL (32.0-36.0); MEAN CORPUSCULAR VOLUME 82 fl (80-97); PLATELET COUNT 271 10^3/uL (150-450); RED BLOOD COUNT 5.23 10^6/uL (4.35-5.55); RED CELL DISTRIBUTION WIDTH 13.7 % (11.5-14.0); WHITE BLOOD COUNT 9.8 10^3/uL (4.0-10.5)
[2019-01-31 06:26] LABS: ANION GAP 8 (5-19); BLOOD UREA NITROGEN 19 mg/dL (7-20); CALCIUM 9.2 mg/dL (8.4-10.2); CARBON DIOXIDE 23 mmol/L (22-30); CHLORIDE 108 mmol/L (98-107); CHOLESTEROL 199.97 mg/dL (0-200); GLUCOSE 95 mg/dL (75-110); POTASSIUM 4.3 mmol/L (3.6-5.0); TRIGLYCERIDES 227 mg/dL (<150)
[2019-01-31 06:36] LABS: DIRECT LDL 143 mg/dL (<100)
[2019-01-31 06:40] LABS: VLDL CHOLESTEROL 45.4 mg/dL (10-31)
--- NOTE | 2019-01-31 09:18 | RADIOLOGY REPORT (SQ) ---
EXAM DESCRIPTION: MRI HEAD WITHOUT COMPLETED DATE/TIME: 01/31/2019 8:03 am REASON FOR STUDY: tia COMPARISON: CT angio brain 01/30/2019 CT brain without contrast 01/30/2019 MRI brain 01/11/2019 MRI cervical spine 12/27/2018, 11/26/2018 TECHNIQUE: Multiplanar imaging includes non-contrasted T1, T2, FLAIR, and diffusion with ADC map seq uences. Images stored on PACS. LIMITATIONS: None. FINDINGS: ANATOMY: At the bottom edge of the field of view, a syrinx in the upper cervical spine pre sent, incompletely characterized. CSF SPACES: Normal in size and contour. No hemorrhage. CEREBRUM: No MR evidence of acute large territory ischemic change, acute intracranial hemorrhage, mas s effect, or midline shift. Diffusion-weighted images are negative for acute ischemic change. Minim al increased FLAIR/ T2 signal in the deep hemispheric white matter likely gliosis along perivascular spaces, age-appropriate. POSTERIOR FOSSA: No signal alteration. No hemorrhage. No edema, masses or mass effect. Internal jacobo tory canals, cerebello-pontine angles, mastoids normal. DIFFUSION IMAGING: Negative for acute or sub-acute infarction. ORBITS: No masses. Globes post cataract surgery bilaterally. PARANASAL SINUSES: No fluid levels. Mucosa normal. OTHER: No other significant finding. IMPRESSION: No acute findings. 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 TECHNICAL DOCUMENTATION: JOB ID: [id number] [employer]- All Rights Reserved Reading location - IP/workstation name: [email or web address]
--- NOTE | 2019-01-31 09:43 | PDOC DISCHARGE SUMMARY ---
General - Admit/Disc Date/PCP Admission Date/Primary Care Provider: 01/30/19 13:12 ROSI VILLALBA Discharge Date: 01/31/19 - Discharge Diagnosis (1) TIA (transient ischemic attack) Is this a current diagnosis for this admission?: Yes (2) HTN (hypertension) Is this a current diagnosis for this admission?: No Summary: 01/31/2019-patient blood pressure today is 46/89. Patient was advised about low- salt diet. Advised to be compliant with his home medications. (3) Hyperlipemia Is this a current diagnosis for this admission?: No Summary: 01/31/2019-patient has a history of hyperlipidemia he was advised to continue atorvastatin at home. (4) Tobacco abuse Is this a current diagnosis for this admission?: No Summary: 01/31/2019-patient is current day smoker patient was strongly advised to quit smoking. - Additional Information Resuscitation Status: Full Code Discharge Diet: Cardiac Discharge Activity: Activity As Tolerated Home Medications: Cholecalciferol (Vitamin D3) [Vitamin D3 1000 Unit Tablet] 1,000 unit PO DAILY 01/30/19 Clonidine HCl [Catapres 0.2 mg Tablet] 0.2 mg PO DAILY 01/30/19 Losartan Potassium [Cozaar 100 mg Tablet] 100 mg PO DAILY 01/30/19 Aspirin [Aspirin 81 mg Chewable Tablet] 81 mg PO DAILY tab.chew 01/31/19 Atorvastatin Calcium [Lipitor 40 mg Tablet] 40 mg PO QHS tablet 01/31/19 History of Present Illness History of Present Illness: MYLES WARE is a 73 year old male 73 year old male with a history of COPD, current everyday smoker, hypertension, hyperlipidemia. He presents to the ER via private vehicle complaining of dizziness and weakness. He said he was at [employer] a table saw and when he was walking up to the counter to pay for it he said that he felt like his right foot kept slipping on the floor whenever he said it down. He looked down to the floor to see if it was wet but he could not see any evidence of water or liquid on the floor. He said when he got up to the [employer] register, his legs got very wobbly and he got very dizzy. For some reason, he decided to take a nitroglycerin. He said he had that because he had a doctor tell him that years ago he had a heart attack. He did not have any chest pain whenever this episode happened. He managed to hang on to the cart and get the table saw out to his truck. He said he called a friend to come get him and his took the truck and his friend brought him to the ER. He said he thinks that the symptoms lasted in total about 45 minutes. He is never had anything like this happen before. He has no family history of stroke. His vital signs in the ER were normal. He is being admitted for further evaluation. Hospital Course Hospital Course: 73 year old male with a history of COPD, current everyday smoker, hypertension, hyperlipidemia. He presents to the ER via private vehicle complaining of dizziness and weakness. He said he was at [employer] buying a table saw and when he was walking up to the counter to pay for it he said that he felt like his right foot kept slipping on the floor whenever he said it down. He looked down to the floor to see if it was wet but he could not see any evidence of water or liquid on the floor. He said when he got up to the [employer] register, his legs got very wobbly and he got very dizzy. For some reason, he decided to take a nitroglycerin. He said he had that because he had a doctor tell him that years ago he had a heart attack. He did not have any chest pain whenever this episode happened. He managed to hang on to the cart and get the table saw out to his truck. He said he called a friend to come get him and his took the truck and his friend brought him to the ER. He said he thinks that the symptoms lasted in total about 45 minutes. He is never had anything like this happen before. He has no family history of stroke. His vital signs in the ER were normal. He is being admitted for further evaluation. [id number]-old male with a history of multiple medical problems including daily smoker, hypertension, hyperlipidemia, COPD recent history of stroke came to the emergency room with complaints of weakness and admitted as a TIA CT head was negative CT of the neck was negative MRI of his negative for acute pathology. Patient said he is compliant with his medications and does not require any refills from me today. He agreed to go home and follow-up with his primary care physician in 1 week time. Physical Exam Vital Signs: Temp Pulse Resp BP Pulse Ox 97.9 F 82 16 146/89 H 98 01/31/19 08:53 01/31/19 08:53 01/31/19 08:00 01/31/19 08:53 01/31/19 08:53 Intake & Output 01/30/19 01/31/19 02/01/19 06:59 06:59 06:59 Intake Total 1240 Balance 1240 Weight 75.1 kg General appearance: PRESENT: no acute distress, cooperative Head exam: PRESENT: atraumatic Eye exam: PRESENT: PERRLA Ear exam: PRESENT: normal external ear exam Mouth exam: PRESENT: moist, tongue midline Teeth exam: PRESENT: poor dentation Neck exam: ABSENT: carotid bruit, JVD, lymphadenopathy, thyromegaly Respiratory exam: PRESENT: decreased breath sounds Cardiovascular exam: PRESENT: RRR. ABSENT: diastolic murmur, rubs, systolic murmur GI/Abdominal exam: PRESENT: normal bowel sounds, soft. ABSENT: distended, guarding, mass, organolmegaly, rebound, tenderness Rectal exam: PRESENT: deferred Extremities exam: PRESENT: full ROM. ABSENT: calf tenderness, clubbing, pedal edema Psychiatric exam: PRESENT: appropriate affect, normal mood. ABSENT: homicidal ideation, suicidal ideation Results Laboratory Results: 01/31/19 05:36 01/31/19 05:36 01/30/19 01/30/19 01/30/19 10:58 10:58 12:24 WBC 9.2 RBC 5.38 Hgb 14.8 Hct 44.1 MCV 82 MCH 27.5 MCHC 33.6 RDW 13.9 Plt Count 274 Seg Neutrophils % 56.3 Sodium 140.5 Potassium 4.7 Chloride 104 Carbon Dioxide 28 Anion Gap 9 BUN 19 Creatinine 1.09 Est GFR ( Amer) > 60 Glucose 106 Calcium 9.7 Total Bilirubin 0.8 AST 32 Alkaline Phosphatase 153 H Total Protein 8.2 Albumin 4.2 Triglycerides Cholesterol LDL Cholesterol Direct VLDL Cholesterol HDL Cholesterol Urine Color YELLOW Urine Appearance CLEAR Urine pH 6.0 Ur Specific [place] 1.011 Urine Protein NEGATIVE Urine Glucose (UA) NEGATIVE Urine Ketones NEGATIVE Urine Blood NEGATIVE Urine Nitrite NEGATIVE Ur Leukocyte Esterase NEGATIVE Urine WBC (Auto) 1 Urine RBC (Auto) 0 01/31/19 01/31/19 05:36 05:36 WBC 9.8 RBC 5.23 Hgb 14.5 Hct 42.9 MCV 82 MCH 27.7 MCHC 33.7 RDW 13.7 Plt Count 271 Seg Neutrophils % Sodium 139.1 Potassium 4.3 Chloride 108 H Carbon Dioxide 23 Anion Gap 8 BUN 19 Creatinine 1.02 Est GFR ( Amer) > 60 Glucose 95 Calcium 9.2 Total Bilirubin AST Alkaline Phosphatase Total Protein Albumin Triglycerides 227 H Cholesterol 199.97 LDL Cholesterol Direct 143 H VLDL Cholesterol 45.4 H HDL Cholesterol 30 L Urine Color Urine Appearance Urine pH Ur Specific [place] Urine Protein Urine Glucose (UA) Urine Ketones Urine Blood Urine Nitrite Ur Leukocyte Esterase Urine WBC (Auto) Urine RBC (Auto) 01/30/19 10:58 Troponin I < 0.012 Impressions: Head CT 01/30/19 11:30 IMPRESSION: NORMAL BRAIN CT WITHOUT CONTRAST. EVIDENCE OF ACUTE STROKE: NO. Head CTA 01/30/19 11:30 IMPRESSION: 1. No carotid stenosis or dissection bilaterally. 2. No cerebral artery occlusion or aneurysm suggested. Neck CTA 01/30/19 11:30 IMPRESSION: 1. No carotid stenosis or dissection bilaterally. 2. No cerebral artery occlusion or aneurysm suggested. Head MRI 01/31/19 00:00 IMPRESSION: No acute findings. 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 Qualifiers - * PATIENT BEING DISCHARGED WITH ANY OF THE FOLLOWING DIAGNOSIS: No VTE patient discharged on overlapping Therapy?: No Acute Heart Failure - Is this a Heart Failure Patient?: No Plan Time Spent: Greater than 30 Minutes
[2019-01-31] MEDS ORDERED: CHOLECALCIFEROL (D3) 1,000 UNIT (25 MCG) TABLET PO SCH (10:00)
[2019-01-31] MEDS ORDERED: ASPIRIN 81 MG TABLET, CHEWABLE PO SCH (10:00)
[2019-01-31] MEDS ORDERED: NICOTINE 21 MG/24 HR PATCH.TD24 TD SCH (10:00)
[2019-01-31] MEDS ORDERED: LOSARTAN POTASSIUM 50 MG TABLET PO SCH (10:00)
[2019-01-31 11:11] VITALS: BP 149/89
--- NOTE | 2019-01-31 23:04 | EKG REPORT ---
SEVERITY:- ABNORMAL ECG - SINUS RHYTHM INFERIOR INFARCT, AGE INDETERMINATE : Confirmed by: Ulisses Brown 31-Jan-2019 23:04:22
== END 2019-01-31 12:31 | disposition home or self-care (01) ==
LOC: ER 09:58 → EH 13:12 → 3S 16:29
PROVIDERS: ADMIT Internal Medicine; ATTEND Internal Medicine
DX: G45.9 Transient cerebral ischemic attack, unspecified (principal); I10 Essential (primary) hypertension; E78.5 Hyperlipidemia, unspecified; I25.2 Old myocardial infarction; F17.200 Nicotine dependence, unspecified, uncomplicated; R19.7 Diarrhea, unspecified; R14.3 Flatulence; R26.2 Difficulty in walking, not elsewhere classified; Z79.82 Long term (current) use of aspirin; Z79.899 Other long term (current) drug therapy; Z82.49 Family history of ischemic heart disease and other diseases of the circulatory system
CPT/HCPCS: 93005; 99285; 96372; 96360; 36415 ×2; 85025; 85027; 80048; 80053; 81001; 84484; 80061; 70551; 70450; 70496; 70498; 93010; 97162; G0378 ×3; A9270 ×4; J1644 ×2; J3490 ×2; J7030

== ENCOUNTER 2019-05-11 09:19 | Emergency (ER) | payer MEDICARE, MEDICAID ==
--- NOTE | 2019-05-11 09:50 | ER Document Report ---
ED Medical Screen (RME) - General Chief Complaint: Chest Pain Stated Complaint: CHEST PAIN Time Seen by Provider: 05/11/19 09:43 Primary Care Provider: ROSI VILLALAB MD [Primary Care Provider] - Follow up as needed TRAVEL OUTSIDE OF THE [place] IN LAST 30 DAYS: No - HPI Notes: 05/11/19 09:48 73-year-old man with a history of COPD and previous MIs presents the emergency room for right-sided chest pain that started abruptly at 4 AM this morning, describes pain as sharp, denies any radiation. Did take a baby aspirin 324 this morning. Patient was already awake when the chest pain started. Patient states that he has had history of silent MIs in the past. Denies any shortness of breath worse than he already experiences with his COPD. Is not oxygen dependent I have greeted and performed a rapid initial assessment of this patient. A comprehensive ED assessment and evaluation of the patient, analysis of test results and completion of the medical decision making process will be conducted by additional ED providers. PHYSICAL EXAMINATION: GENERAL: Well-appearing, well-nourished and in no acute distress. HEAD: Atraumatic, normocephalic. EYES: Pupils equal round extraocular movements intact, conjunctiva are normal. ENT: Nares patent NECK: Normal range of motion LUNGS: Diminished breath sounds throughout Musculoskeletal: Normal range of motion NEUROLOGICAL: Normal speech, normal gait. PSYCH: Normal mood, normal affect. SKIN: Warm, Dry, normal turgor, no rashes or lesions noted. - Related Data Allergies/Adverse Reactions: No Known Allergies Allergy (Verified 05/11/19 09:43) Past Medical History - Social History Chew tobacco use (# tins/day): No Frequency of alcohol use: None Drug Abuse: None - Past Medical History Cardiac Medical History: Reports: Hx Heart Attack - 4 YEARS AGO, Hx Hypercholesterolemia, Hx Hypertension Denies: Hx Coronary Artery Disease - HIGH CHOL Pulmonary Medical History: Reports: Hx COPD, Hx Pneumonia - HX OF Denies: Hx Asthma, Hx Bronchitis Neurological Medical History: Denies: Hx Cerebrovascular Accident, Hx Seizures GI Medical History: Denies: Hx Hepatitis, Hx Hiatal Hernia, Hx Ulcer Musculoskeltal Medical History: Reports Hx Arthritis Infectious Medical History: Denies: Hx Hepatitis Past Surgical History: Reports: Hx Appendectomy, Hx Oral Surgery. Denies: Hx Open Heart Surgery, Hx Pacemaker - Immunizations Hx Diphtheria, Pertussis, Tetanus Vaccination: Yes Physical Exam - Vital signs Vitals: Temp Pulse Resp BP Pulse Ox 97.4 F 74 16 135/78 H 94 05/11/19 09:37 05/11/19 09:37 05/11/19 09:37 05/11/19 09:37 05/11/19 09:37 Course - Vital Signs Vital signs: Temp Pulse Resp BP Pulse Ox 97.4 F 74 16 135/78 H 94 05/11/19 09:43 05/11/19 09:37 05/11/19 09:43 05/11/19 09:37 05/11/19 09:43 Doctor's Discharge - Discharge Referrals: ROSI VILLALBA MD [Primary Care Provider] - Follow up as needed
[2019-05-11 10:31] LABS: ABSOLUTE BASOPHILS # (AUTO) 0.1 10^3/uL (0.0-0.2); ABSOLUTE EOSINOPHILS # (AUTO) 0.3 10^3/uL (0.0-0.6); ABSOLUTE LYMPHOCYTES (AUTO) 2.4 10^3/uL (0.5-4.7); ABSOLUTE MONOCYTES (AUTO) 0.9 10^3/uL (0.1-1.4); ABSOLUTE NEUT (AUTO) 5.4 10^3/uL (1.7-8.2); BASOPHILS % (AUTO) 1.3 % (0-2); EOSINOPHILS % (AUTO) 3.1 % (0-6); HEMATOCRIT 44.9 % (37.9-51.0); HEMOGLOBIN 15.2 g/dL (13.5-17.0); LYMPHOCYTES % (AUTO) 26.4 % (13-45); MEAN CORPUSCULAR HGB CONC 33.8 g/dL (32.0-36.0); MEAN CORPUSCULAR VOLUME 83 fl (80-97); MONOCYTES % (AUTO) 9.8 % (3-13); PLATELET COUNT 271 10^3/uL (150-450); RED BLOOD COUNT 5.43 10^6/uL (4.35-5.55); RED CELL DISTRIBUTION WIDTH 13.8 % (11.5-14.0); SEGMENTED NEUTROPHILS % (AUTO) 59.4 % (42-78); TOTAL CELLS COUNTED % (AUTO) 100 %; WHITE BLOOD COUNT 9.1 10^3/uL (4.0-10.5)
--- NOTE | 2019-05-11 10:50 | RADIOLOGY REPORT (SQ) ---
EXAM DESCRIPTION: CHEST SINGLE VIEW COMPLETED DATE/TIME: 05/11/2019 10:31 am REASON FOR STUDY: CP COMPARISON: 05/11/2018 EXAM PARAMETERS: NUMBER OF VIEWS: One view. TECHNIQUE: Single frontal radiographic view of the chest acquired. RADIATION DOSE: NA LIMITATIONS: None. FINDINGS: LUNGS AND PLEURA: Emphysematous change with hyperinflation and chronic interstitial opacit ies. No focal consolidation. No pleural effusion or pneumothorax. MEDIASTINUM AND HILAR STRUCTURES: No masses. Contour normal. HEART AND VASCULAR STRUCTURES: Heart normal in size. Aortic atherosclerosis. . BONES: No acute findings. HARDWARE: None in the chest. OTHER: No other significant finding. IMPRESSION: Chronic emphysematous change without evidence of acute cardiopulmonary process. TECHNICAL DOCUMENTATION: JOB ID: [id number] [employer]- All Rights Reserved Reading location - IP/workstation name: [email or web address]
[2019-05-11 11:43] LABS: ALKALINE PHOSPHATASE 115 U/L (38-126); ANION GAP 11 (5-19); ASPARTATE AMINO TRANSFERASE 26 U/L (17-59); BILIRUBIN,DIRECT 0.2 mg/dL (0.0-0.4); BILIRUBIN,TOTAL 0.6 mg/dL (0.2-1.3); BLOOD UREA NITROGEN 17 mg/dL (7-20); CALCIUM 9.3 mg/dL (8.4-10.2); CARBON DIOXIDE 27 mmol/L (22-30); CHLORIDE 103 mmol/L (98-107); CREATINE KINASE 104 U/L (55-170); GLUCOSE 80 mg/dL (75-110); POTASSIUM 4.3 mmol/L (3.6-5.0); TOTAL PROTEIN 8.3 g/dL (6.3-8.2)
[2019-05-11 11:53] LABS: CREATINE KINASE MB 2.56 ng/mL (<4.55)
[2019-05-11 11:55] LABS: TROPONIN I < 0.012 ng/mL
[2019-05-11] MEDS ORDERED: IPRATROPIUM/ALBUTEROL 0.5-2.5 MG/3 ML AMPUL NEB ONE (13:12)
--- NOTE | 2019-05-11 14:21 | ER Document Report ---
ED General - General Chief Complaint: Chest Pain Stated Complaint: CHEST PAIN Time Seen by Provider: 05/11/19 09:43 Primary Care Provider: ROSI VILLALBA MD [Primary Care Provider] - Follow up in 3-5 days TRAVEL OUTSIDE OF THE [place] IN LAST 30 DAYS: No - HPI Notes: 73-year-old male with history of COPD, coronary artery disease, hypertension to the emergency department with complaints of intermittent sharp and quick right- sided chest pain that began this morning at 4 AM. He states that the episode will come on and last several seconds and go away. It is not aggravated by exertion. He denies any nausea, vomiting, diaphoresis, shortness of breath, back pain, neck pain, arm pain with this chest pain. He states that he had a heart attack 5 years ago but did not get stenting. He states that he continues to smoke a pack of cigarettes every single day and has done so for the past 50 years. He admits that he has a history of COPD but does not feel like he has a COPD exasperation. He states that he has been coughing a little but no production of sputum. He denies any fevers or chills. He denies any other complaints. - Related Data Allergies/Adverse Reactions: No Known Allergies Allergy (Verified 05/11/19 09:43) Past Medical History - Social History Smoking Status: Current Every Day Smoker Chew tobacco use (# tins/day): No Frequency of alcohol use: None Drug Abuse: None Family History: Reviewed & Not Pertinent, CAD, COPD, Hyperlipidemia, Hypert ension Patient has suicidal ideation: No Patient has homicidal ideation: No - Past Medical History Cardiac Medical History: Reports: Hx Heart Attack - 4 YEARS AGO, Hx Hypercholesterolemia, Hx Hypertension Denies: Hx Coronary Artery Disease - HIGH CHOL Pulmonary Medical History: Reports: Hx COPD, Hx Pneumonia - HX OF Denies: Hx Asthma, Hx Bronchitis Neurological Medical History: Denies: Hx Cerebrovascular Accident, Hx Seizures GI Medical History: Denies: Hx Hepatitis, Hx Hiatal Hernia, Hx Ulcer Musculoskeletal Medical History: Reports Hx Arthritis Infectious Medical History: Denies: Hx Hepatitis Past Surgical History: Reports: Hx Appendectomy, Hx Oral Surgery, Hx Orthopedic Surgery - L elbow. Denies: Hx Open Heart Surgery, Hx Pacemaker - Immunizations Hx Diphtheria, Pertussis, Tetanus Vaccination: Yes Hx Pneumococcal Vaccination: 02/28/17 Review of Systems - Review of Systems Constitutional: denies: Chills, Diaphoresis, Fever EENT: No symptoms reported Cardiovascular: See HPI, Chest pain. denies: Palpitations, Heart racing, Orthopnea, Syncope, Dizziness, Lightheaded Respiratory: Cough. denies: Short of breath, Sputum, Wheezing Gastrointestinal: denies: Abdominal pain, Diarrhea, Nausea, Vomiting Genitourinary: No symptoms reported Male Genitourinary: No symptoms reported Musculoskeletal: No symptoms reported Skin: No symptoms reported Hematologic/Lymphatic: No symptoms reported Neurological/Psychological: No symptoms reported -: Yes All other systems reviewed and negative Physical Exam - Vital signs Vitals: Temp Pulse Resp BP Pulse Ox 97.4 F 74 16 135/78 H 94 05/11/19 09:37 05/11/19 09:37 05/11/19 09:37 05/11/19 09:37 05/11/19 09:37 Interpretation: Normal - General General appearance: Appears well, Alert Notes: in no acute distress - HEENT Head: Normocephalic, Atraumatic Eyes: Normal Pupils: PERRL - Respiratory Respiratory status: No respiratory distress. No: Retractions, Tripod position Chest status: Nontender. No: Pain on movement, Pain with cough, Pain with deep breathing, Accessory muscle use Breath sounds: Nonproductive cough, Rhonchi, Wheezing Chest palpation: Normal - Cardiovascular Rhythm: Regular Heart sounds: Normal auscultation Murmur: No Notes: no leg edema - Abdominal Inspection: Normal Distension: No distension Bowel sounds: Normal Tenderness: Nontender Organomegaly: No organomegaly - Back Back: Normal, Nontender - Extremities General upper extremity: Normal inspection, Nontender, Normal color, Normal ROM, Normal temperature General lower extremity: Normal inspection, Nontender, Normal color, Normal ROM, Normal temperature, Normal weight bearing. No: Parish's sign - Neurological Neuro grossly intact: Yes Cognition: Normal Orientation: AAOx4 [place] Coma Scale Eye Opening: Spontaneous [place] Coma Scale Verbal: Oriented Dylan Coma Scale Motor: Obeys Commands [place] Coma Scale Total: 15 Speech: Normal Cranial nerves: Normal Cerebellar coordination: Normal. No: Gait ataxia Motor strength normal: LUE, RUE, LLE, RLE Additional motor exam normals: Equal gas inspector. No: Pronator drift Sensory: Normal - Psychological Associated symptoms: Normal affect, Normal mood - Skin Skin Temperature: Warm Skin Moisture: Dry Skin Color: Normal Course - Re-evaluation Re-evalutation: 05/11/19 Initial labs were reassuring and given patient's history would like to trend troponins. However patient does not want to stay for result of his second troponin. He has been chest pain-free for some time now. He would like to go home. I do think that he is safe for discharge and I will call him with his results. I have encouraged him to return immediately for any worsening chest pain or any other concerning symptoms. Do suspect that he does have an element of COPD involved in this chest pain since he has been wheezing while in the emergency department. Will discharge home with albuterol and have him follow-up with his primary care physician without fail. He agrees with the plan. - Vital Signs Vital signs: Temp Pulse Resp BP Pulse Ox 97.5 F 87 20 164/88 H 96 05/11/19 15:45 05/11/19 15:45 05/11/19 15:45 05/11/19 15:45 05/11/19 15:45 - Laboratory Result Diagrams: 05/11/19 10:13 05/11/19 11:14 Laboratory results interpreted by me: 05/11/19 11:14 Total Protein 8.3 H - EKG Interpretation by Me EKG shows normal: Sinus rhythm Rate: Normal Rhythm: NSR When compared to previous EKG there are: No significant change Additional EKG results interpreted by me: 05/11/19 no STEMI, no ST changes. No signficant difference from prior on [id number]. Discharge - Discharge Clinical Impression: Wheezing Chest pain Qualifiers: Chest pain type: unspecified Qualified Code(s): R07.9 - Chest pain, unspecified COPD (chronic obstructive pulmonary disease) Qualifiers: COPD type: unspecified COPD Qualified Code(s): J44.9 - Chronic obstructive pulmonary disease, unspecified Condition: Stable Disposition: HOME, SELF-CARE Instructions: Chronic Obstructive Lung Disease ([facility]), Chest Pain of Unclear Cause ([facility]) Additional Instructions: RETURN IMMEDIATELY IF WORSENING CHEST PAIN. USE ALBUTEROL INHALER. YOU WERE ENCOURAGED TO STOP SMOKING TODAY. Prescriptions: Albuterol Sulfate [Proair HFA Inhalation Aerosol 8.5 gm MDI] 2 puff IH Q4H PRN #1 mdi PRN Reason: Referrals: ROSI VILLALBA MD [Primary Care Provider] - Follow up in 3-5 days
[2019-05-11 15:50] VITALS: BP 164/88
--- NOTE | 2019-05-11 16:53 | EKG REPORT ---
SEVERITY:- ABNORMAL ECG - SINUS RHYTHM INFERIOR INFARCT, OLD : Confirmed by: Laz Aj MD 11-May-2019 16:53:26
== END 2019-05-11 15:51 | disposition home or self-care (01) ==
LOC: ER 09:19
DX: R07.9 Chest pain, unspecified (principal); J44.9 Chronic obstructive pulmonary disease, unspecified; R05 Cough; I25.10 Atherosclerotic heart disease of native coronary artery without angina pectoris; I10 Essential (primary) hypertension; I25.2 Old myocardial infarction; F17.210 Nicotine dependence, cigarettes, uncomplicated
CPT/HCPCS: 93005; 36415; 82553; 82550; 85025; 80053; 84484; 71045; 93010; A9270; 94640; 99285; J7620

== ENCOUNTER 2020-06-13 20:16 | Emergency (ER) | payer OTHER, MEDICAID ==
[2020-06-14 00:03] LABS: ABSOLUTE EOSINOPHILS # (AUTO) 0.1 10^3/uL (0.0-0.6); ABSOLUTE LYMPHOCYTES (AUTO) 2.5 10^3/uL (0.5-4.7); ABSOLUTE MONOCYTES (AUTO) 1.5 10^3/uL (0.1-1.4); ABSOLUTE NEUT (AUTO) 10.8 10^3/uL (1.7-8.2); BASOPHILS % (AUTO) 0.3 % (0-2); EOSINOPHILS % (AUTO) 0.4 % (0-6); HEMATOCRIT 43.2 % (37.9-51.0); HEMOGLOBIN 14.7 g/dL (13.5-17.0); LYMPHOCYTES % (AUTO) 16.8 % (13-45); MEAN CORPUSCULAR HEMOGLOBIN 27.2 pg (27.0-33.4); MEAN CORPUSCULAR HGB CONC 33.9 g/dL (32.0-36.0); MEAN CORPUSCULAR VOLUME 80 fl (80-97); MONOCYTES % (AUTO) 9.9 % (3-13); PLATELET COUNT 348 10^3/uL (150-450); SEGMENTED NEUTROPHILS % (AUTO) 72.6 % (42-78); TOTAL CELLS COUNTED % (AUTO) 100 %; WHITE BLOOD COUNT 14.9 10^3/uL (4.0-10.5)
[2020-06-14 00:08] LABS: ALKALINE PHOSPHATASE 147 U/L (38-126); ANION GAP 5 (5-19); ASPARTATE AMINO TRANSFERASE 26 U/L (17-59); BILIRUBIN,DIRECT 0.4 mg/dL (0.0-0.4); BILIRUBIN,TOTAL 1.1 mg/dL (0.2-1.3); BLOOD UREA NITROGEN 23 mg/dL (7-20); CALCIUM 9.3 mg/dL (8.4-10.2); CARBON DIOXIDE 30 mmol/L (22-30); CHLORIDE 102 mmol/L (98-107); GLUCOSE 115 mg/dL (75-110)
[2020-06-14 00:12] LABS: APPEARANCE,URINE SLIGHTLY-CLOUDY; BILIRUBIN,URINE SMALL (NEGATIVE); COLOR,URINE AMBER; GLUCOSE, URINE NEGATIVE (NEGATIVE); KETONES,URINE TRACE mg/dL (NEGATIVE); LEUKOCYTE ESTERASE,URINE NEGATIVE (NEGATIVE); NITRITE,URINE NEGATIVE (NEGATIVE); PROTEIN,URINE 30 mg/dL (NEGATIVE); URINE SPECIFIC GRAVITY 1.023
[2020-06-14] MEDS ORDERED: KETOROLAC TROMETHAMINE INJ/PF 30 MG/1 ML SDV IV ONE (02:51)
--- NOTE | 2020-06-14 05:08 | RADIOLOGY REPORT (SQ) ---
CT abdomen and pelvis with contrast on 06/14/2020 at 4:00 AM CLINICAL INDICATION: Lower abdominal pain, loose stools, chills TECHNIQUE: Multiple axial images are obtained throughout the abdomen and pelvis following the administration of IV contrast, 83 mL of Omnipaque 350contrast was administered intravenously without complication. This exam was performed according to our departmental dose-optimization program, which includes automated exposure control, adjustment of the mA and/or kV according to patient size and/or use of iterative reconstruction technique. Total DLP is 740.2 mGy*cm. COMPARISON: None FINDINGS: Abdomen: There is minimal basilar atelectasis or scarring. Increased stool is noted in the colon down to the level of the sigmoid colon consistent with constipation. Vascular calcifications are noted. Bilateral adrenal prominence is most consistent with adrenal hyperplasia. Gallstone is noted in the gallbladder. The solid abdominal organs are otherwise unremarkable. Specifically no liver lesion is noted. There is no abdominal adenopathy. There is a 5 cm infrarenal abdominal aortic aneurysm. Would recommend follow-up imaging every six months and vascular surgery consultation. There is no free fluid or free air within the abdomen. The abdominal portion of the GI tract is otherwise unremarkable. 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 This is seen well on axial image 69 of series 3. This extends approximately 5.8 cm along the course of the sigmoid colon. Recommend follow-up colonoscopy for tissue diagnosis. The prostate is mildly enlarged, please correlate with physical exam and PSA levels. There is no free fluid in the pelvis. There is no pelvic adenopathy. Vascular calcifications are noted. Pelvic portion of the GI tract is otherwise unremarkable. No acute bony abnormality is noted. IMPRESSION: 1. 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 No evidence to suggest definite metastatic disease is noted on this exam. 2. 5 cm infrarenal abdominal aortic aneurysm, recommend follow-up imaging every six months and vascular surgery consultation. 3. Cholelithiasis. 4. Dr. Rodriguez in the emergency department was made aware of impression one and two by myself by phone on 06/14/2020 at 5:06 AM eastern time.
--- NOTE | 2020-06-14 05:54 | ER Document Report ---
ED General - General Chief Complaint: Abdominal Pain >50 Stated Complaint: VOMITING,DIARRHEA,NAUSEA Primary Care Provider: ROSI VILLALBA MD [Primary Care Provider] - Follow up as needed Notes: 74-year-old male with history of smoking, hypertension, hyperlipidemia presents with approximately 2 weeks of worsening left lower quadrant abdominal pain intermittently associated with loose stools more frequently for the past 2 days. Patient states he has approximately 3 episodes per day of loose nonbloody nonblack stool. Triage note says nausea vomiting which is erroneous, patient denies having had any nausea or any vomiting during the symptoms. Patient has had prior colonoscopy but cannot remember when, at least several years ago. Pat ient denies any fever, obstipation, constipation, urinary symptoms, prior eval for current symptoms, chest pain, recent antibiotics, C. difficile history, immunocompromise history, recent hospitalizations TRAVEL OUTSIDE OF THE [place] IN LAST 30 DAYS: No - Related Data Allergies/Adverse Reactions: No Known Allergies Allergy (Verified 05/11/19 09:43) Home Medications: lipitor. clondine. losartan. vit d. gabapentin Past Medical History - General Information source: Patient - Social History Smoking Status: Never Smoker Chew tobacco use (# tins/day): No Drug Abuse: None Family History: Reviewed & Not Pertinent, CAD, COPD, Hyperlipidemia, Hypertension - Past Medical History Cardiac Medical History: Reports: Hx Heart Attack - 4 YEARS AGO, Hx Hypercholesterolemia, Hx Hypertension Denies: Hx Coronary Artery Disease - HIGH CHOL Pulmonary Medical History: Reports: Hx COPD, Hx Pneumonia - HX OF Denies: Hx Asthma, Hx Bronchitis Neurological Medical History: Denies: Hx Cerebrovascular Accident, Hx Seizures GI Medical History: Denies: Hx Hepatitis, Hx Hiatal Hernia, Hx Ulcer Musculoskeletal Medical History: Reports Hx Arthritis Infectious Medical History: Denies: Hx Hepatitis Past Surgical History: Reports: Hx Appendectomy, Hx Oral Surgery, Hx Orthopedic Surgery - L elbow. Denies: Hx Open Heart Surgery, Hx Pacemaker - Immunizations Hx Diphtheria, Pertussis, Tetanus Vaccination: Yes Hx Pneumococcal Vaccination: 02/28/17 Review of Systems - Review of Systems Notes: REVIEW OF SYSTEMS: CONSTITUTIONAL : Denies fever, chills, or sweats. EENT: Denies recent cold/sinus symptoms, denies throat pain CARDIOVASCULAR: Denies chest pain, MAGDIEL RESPIRATORY: Denies cough, denies shortness of breath. GASTROINTESTINAL: + abdominal pain, nausea/vomiting. GENITOURINARY: Denies difficulty urinating, painful urination.. MUSCULOSKELETAL: Denies neck pain, back pain. SKIN: Denies rash or skin lesions. HEMATOLOGIC : Denies easy bruising or bleeding. LYMPHATIC: Denies swollen, enlarged glands. NEUROLOGICAL: Denies headache, denies change in gait. PSYCHIATRIC: Denies anxiety or stress or depression. Physical Exam - Vital signs Vitals: Temp Pulse Resp BP Pulse Ox 98.1 F 95 18 123/74 96 06/13/20 21:14 06/13/20 21:14 06/13/20 21:14 06/13/20 21:14 06/13/20 21:14 - Notes Notes: PHYSICAL EXAMINATION: GENERAL: Elderly thin man lying in stretcher in no acute distress HEAD: Atraumatic, normocephalic. EYES: Pupils equal round and appropriate constriction, sclera anicteric, conjunctiva are normal. ENT: nares patent, moist mucous membranes. NECK: Normal range of motion, supple without lymphadenopathy LUNGS: Faint expiratory wheezing bilaterally, good air movement, normal respiratory rate, normal respiratory effort, no accessory muscle use, speaking in full sentences HEART: Regular rate and rhythm without murmurs ABDOMEN: Soft, nontender, no guarding, no rebound, no palpable masses, no CVAT EXTREMITIES: Normal range of motion, no pitting or edema. No cyanosis. NEUROLOGICAL: Awake, alert, conversing appropriately, moves all extremities spontaneously. PSYCH: Normal mood, normal affect. SKIN: Warm, Dry, normal turgor, no rashes or lesions noted. Course - Re-evaluation Re-evalutation: 06/14/20 06:32 Few weeks of left lower quadrant abdominal pain with loose stools. No vomiting, no obstipation, no C. difficile risk factors. Patient not acutely ill manny earing, with normal vital signs, reassuring exam, no signs of dehydration, benign abdominal exam. Patient's work-up showed leukocytosis which is nonspecific in the setting as no other signs of infection to correlate with this, instructed him to follow this up with [facility]. Patient has a large sigmoid mass on his CT scan which is not causing obstruction but there is increase stool burden proximal to the mass was a which may be causing patient's symptoms. I informed patient of this diagnosis and the importance of close follow-up outpatient with surgeon and oncologist. Patient demonstrated understanding and denied having any other questions, I prescribed him stool softeners to help with symptoms while he is waiting for outpatient follow-up. Gave patient extensive return to ED precautions which he demonstrated understanding of. - Vital Signs Vital signs: Temp Pulse Resp BP Pulse Ox 98.6 F 92 18 147/81 H 97 06/14/20 02:36 06/14/20 02:36 06/14/20 02:36 06/14/20 02:36 06/14/20 02:36 - Laboratory Results Result Diagrams: 06/13/20 23:40 06/13/20 23:40 Laboratory Results Interpreted: 06/13/20 06/13/20 06/13/20 23:40 23:40 23:40 WBC 14.9 H Absolute Neuts (auto) 10.8 H Absolute Monos (auto) 1.5 H Sodium 136.6 L BUN 23 H Glucose 115 H Alkaline Phosphatase 147 H Urine Protein 30 H Urine Ketones TRACE H Urine Bilirubin SMALL H Urine Urobilinogen 4.0 H Critical Laboratory Results Reviewed: No Critical Results - Radiology Results Critical Radiology Results Reviewed: Yes Attending or Supervising Physician who Reviewed Radiology: KHADRA AGUILAR Discharge - Discharge Clinical Impression: Colon cancer Qualifiers: Colon location: sigmoid Qualified Code(s): C18.7 - Malignant neoplasm of sigmoid colon Constipation Qualifiers: Constipation type: other constipation type Qualified Code(s): K59.09 - Other constipation Disposition: HOME, SELF-CARE Additional Instructions: Your work-up shows that you have a large colon cancer that is causing your symptoms. Other you are having loose stools, you are constipated because of a partial blockage from the mass you should take stool softeners to help that pass. Take Percocet as needed for severe pain although this will worsen your constipation so only take it if you are having pain that is not controlled with ibuprofen or Tylenol. Follow-up with your primary doctor, an oncologist and a surgeon within 1 week. If you stopping able to pass any stool, start having vomiting, fever, worsening pain, dizziness, fainting, or any other worsening or alarming symptoms return to the emergency department immediately. You also had a high white blood cell count on your work-up, this should be discussed with the oncologist when you follow up. Prescriptions: Oxycodone HCl/Acetaminophen [Percocet 5-325 mg Tablet] 1 tab PO Q6HP PRN #6 tablet PRN Reason: Severe Pain Docusate Sodium 100 mg PO QAM PRN #7 tablet PRN Reason: constipation Sennosides [Senna] 8.6 mg PO BID PRN #14 tablet PRN Reason: Constipation Referrals: ROSI VILLALBA MD [Primary Care Provider] - Follow up in 1 week ELISHA LIVINGSTON MD [ACTIVE STAFF] - Follow up in 1 week CLAUDIA ORR MD [ACTIVE STAFF] - Follow up in 1 week
[2020-06-14 06:11] VITALS: BP 160/82
== END 2020-06-14 06:09 | disposition home or self-care (01) ==
LOC: ER 20:16
DX: C18.7 Malignant neoplasm of sigmoid colon (principal); K59.00 Constipation, unspecified; I71.4 Abdominal aortic aneurysm, without rupture; K80.20 Calculus of gallbladder without cholecystitis without obstruction; D72.829 Elevated white blood cell count, unspecified; R10.32 Left lower quadrant pain; E78.00 Pure hypercholesterolemia, unspecified; I10 Essential (primary) hypertension; I25.2 Old myocardial infarction; J44.9 Chronic obstructive pulmonary disease, unspecified; Z79.899 Other long term (current) drug therapy; Z90.49 Acquired absence of other specified parts of digestive tract
CPT/HCPCS: 99285; 96374; 36415; 83690; 85025; 80053; 81001; 74177; J1885

== ENCOUNTER 2020-06-24 05:48 | Day surgery (SDC) | payer MEDICARE, MEDICAID ==
[2020-06-24] MEDS ORDERED: PROPOFOL INJ 200 MG/20 ML VIAL IV ONE (08:02)
[2020-06-24] MEDS ORDERED: LIDOCAINE 2% INJ-PF (20 MG/ML) 10 ML AMPUL ONE (08:02)
[2020-06-24 08:15] LABS: HEMATOCRIT 42.6 % (37.9-51.0); HEMOGLOBIN 14.3 g/dL (13.5-17.0); MEAN CORPUSCULAR HEMOGLOBIN 26.6 pg (27.0-33.4); MEAN CORPUSCULAR HGB CONC 33.5 g/dL (32.0-36.0); MEAN CORPUSCULAR VOLUME 79 fl (80-97); PLATELET COUNT 308 10^3/uL (150-450); RED BLOOD COUNT 5.37 10^6/uL (4.35-5.55); RED CELL DISTRIBUTION WIDTH 14.2 % (11.5-14.0); WHITE BLOOD COUNT 12.3 10^3/uL (4.0-10.5)
[2020-06-24 08:28] LABS: ANION GAP 12 (5-19); BLOOD UREA NITROGEN 30 mg/dL (7-20); CALCIUM 9.1 mg/dL (8.4-10.2); CARBON DIOXIDE 22 mmol/L (22-30); CHLORIDE 103 mmol/L (98-107); GLUCOSE 108 mg/dL (75-110); POTASSIUM 3.8 mmol/L (3.6-5.0)
--- NOTE | 2020-06-24 09:48 | Discharge Summary ---
Discharge Summary (SDC) - Discharge Final Diagnosis: 1. Rectosigmoid colon strictures status post complete colonoscopy with biopsies 2. Sigmoid diverticulosis 3. COPD 4. Abdominal aortic aneurysm Date of Surgery: 06/24/20 Discharge Date: 06/24/20 Condition: Good Treatment or Instructions: Patient may resume preoperative medications, and clear to full liquid diet; no solids; encourage nutritional shakes such as Ensure. Patient to follow-up with [facility] in 1 week. Referrals: ROSI VILLALBA MD [Primary Care Provider] - Discharge Activity: Activity As Tolerated Home Care Assistance: None Needed Report the Following to Your Physician Immediately: Shortness of Breath, Increase in Pain, Fever over 101 Degrees
--- NOTE | 2020-06-24 09:57 | Operative Report ---
Operative Report DATE OF SURGERY: 06/24/20 PREOPERATIVE DIAGNOSIS: 1. Rectosigmoid colon stricture with mass. 2. COPD. 3., Aortic aneurysm. 4. Smoker POSTOPERATIVE DIAGNOSIS: Same with extensive diverticulosis of the sigmoid colon, with colonic stricture at 20 cm from anal verge; incomplete bowel prep OPERATION: 1. Incomplete colonoscopy to 60 cm from anal verge using gastroscope. 2. Biopsies of sigmoid colon at 25 cm. 3. Biopsies of sigmoid colon at 20 cm at site of stricture SURGEON: RELL SANDHU ANESTHESIA: LMAC TISSUE REMOVED OR ALTERED: Biopsies only COMPLICATIONS: None ESTIMATED BLOOD LOSS: None INTRAOPERATIVE FINDINGS: See below PROCEDURE: The patient was taken from ambulatory surgery area to the main operating room, where LMAC anesthesia was induced. He was placed in the left lateral decubitus position. Appropriate level of sedation was accomplished. Surgical timeout and surgical plan discussed With the patient in the extreme left lateral decubitus position, knees to the chest, a rectal exam was performed. There was no visible or palpable anal verge or anal canal pathology The flexible adult colonoscope was advanced through the rectal canal to the point that the scope could not be advanced any further. There was a significant amount of liquid brown stool which was irrigated and aspirated. Despite repositioning the patient and manipulating the lower pelvics extracorporeally, I was not able to advance the scope. The scope was withdrawn. We now brought onto the field a flexible adult gastroscope. The identical procedure was performed again advancing the scope through the anal rectal canal up through the rectum to the rectosigmoid junction 18 to 20 cm. Carefully manipulated the scope, I was able to advance it through the noncompliant, narrow sigmoid colon until I came through the other side proximally. There was a significant amount of liquid brown stool. The scope was advanced to approximately 60 cm from the anal verge. Unfortunately due to the massive amount of stool, small scope, despite aggressive irrigation and suctioning, I did not feel it was appropriate to try to advance the scope any further. The scope was withdrawn through the left colon, and back down through the diseased area. The findings were significant for extensive diverticulosis, and the impression of a noncompliant, extrinsically compressed narrow area between 18 and 25 cm from the anal verge. 2 sets of biopsies were performed. With a cold forceps device, a biopsy was taken of the post stenotic area at 25 cm from the anal verge. I then brought the scope back to the narrowest area and took several mucosal biopsies and labeled them strictured area at 18 cm from the anal verge. Of note there were no obvious ulcerated or malignant appearing areas despite advancing and withdrawing the scope through this narrow area. Photos were taken. Bleeding was minimal. The scope was brought back through the upper and mid rectum and out the anal canal without issues. The procedure was deemed complete. The patient was taken to the recovery area in stable condition Plan: 1. We will keep patient on clear and full liquids; he is to take Ensure or other supplement 2. Patient will require a colectomy possible colostomy depending upon the quality of his bowel prep 3. Patient will receive a vascular consultation, with consideration for intervention of his abdominal aortic aneurysm.
[2020-06-24 13:04] VITALS: BP 138/99
[2020-06-24] MEDS ORDERED: PHENYLEPHRINE HCL INJ/PF 10 MG/1 ML SDV ONE (15:05)
--- OUTSIDE RECORDS SUMMARY | 2020-06-26 09:22 | XMS REPORT ---
:1945 Author Organization [facility] Address [address] [address] Care Team Providers Name Role Phone Unavailable Unavailable Unavailable Allergies, Adverse Reactions, Alerts This patient has no known allergies or adverse reactions. Medications Ordered Filled Start Stop Current Ordering Indication Dosage Frequency Signature Comments Components Medication Medication Date Date Medication? Clinician (SIG) Name Name tramadol 50 No tramadol mg tablet 50 mg Take 1 tablet tablet Take 1 every 6 tablet hours by every 6 oral route. hours by oral route. Symbicort No Symbicort 160 mcg-4.5 160 mcg/actuati mcg-4.5 on HFA mcg/actuat aerosol ion HFA inhaler 1 aerosol puff prn inhaler 1 puff prn atorvastati No 1 Q1D atorvastat n 40 mg in 40 mg tablet Take tablet 1 tablet Take 1 every day tablet by oral every day route for by oral 90 days. route for 90 days. atorvastati No 1 Q1D atorvastat n 80 mg in 80 mg tablet Take tablet 1 tablet Take 1 every day tablet by oral every day route. by oral route. clonidine No clonidine HCl 0.2 mg HCl 0.2 mg tablet Take tablet 1 tablet Take 1 every day tablet by oral every day route. by oral route. losartan No losartan 100 mg 100 mg tablet Take tablet 1 tablet Take 1 every day tablet by oral every day route for by oral 90 days. route for 90 days. oxycodone-a No oxycodone- cetaminophe acetaminop n 5 mg-325 hen 5 mg tablet mg-325 mg Take by tablet oral route Take by for 4 days. oral route for 4 days. azithromyci No azithromyc n 500 mg in 500 mg tablet tablet Problems Condition Condition Condition Status Onset Resolution Last Treatin g Comments Name Details Category Date Date Treatment Clinician Date Cervical Cervical Problem Active disc Disc 6-26 prolapse Prolapse 00:00: with with 00 radiculopat Radiculopat hy hy Degeneratio Degeneratio Problem Active n of n of 6-26 cervical Cervical 00:00: interverteb Interverteb 00 ral disc ral Disc Spinal Spinal Problem Active 2019 stenosis in Stenosis in 6-26 cervical Cervical 00:00: region Region 00 Full Full Problem Active thickness Thickness 4-29 rotator Rotator 00:00: cuff tear Cuff Tear 00 Abnormal Abnormal Problem Active posture Posture 1-08 00:00: 00 Tear of Tear of Problem Active 2018- left Left 1-08 rotator Rotator 00:00: cuff Cuff 00 Glenoid Glenoid Problem Active 2017-05 labrum Labrum 0-24 detachment Detachment 00:00: 00 Pain of Pain of Problem Active 2017- left Left 0-24 shoulder Shoulder 00:00: joint Joint 00 Hearing Hearing Problem Active loss Loss 8-10 00:00: 00 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 00:00: 00 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 00:00: 00 Pain of Pain of Problem Active 2017- left elbow Left Elbow 7-26 joint Joint 00:00: 00 Neck pain Neck Pain Problem Active 2018-0 5-25 00:00: 00 Cervical Cervical Problem Active 2018- radiculopat Radiculopat 5-25 hy hy 00:00: 00 Muscle Muscle Problem Active 2018- weakness Weakness 5-25 00:00: 00 Hyperlipide Hyperlipide Problem Active 2017- soumya soumya 4-25 00:00: 00 Hypertensiv Hypertensiv Problem Active 2018 e disorder e Disorder 4-25 00:00: 00 Chronic Chronic Problem Active 2018- obstructive Obstructive 4-25 lung Lung 00:00: disease Disease 00 Procedures Procedure Date / Time Performed Performing Clinician Devic e RADIOLOGIC EXAM SHOULDER 2 VIEWS 2018-11-07 00:00:00 XR, cervical spine 2018-11-07 00:00:00 RADIOLOGIC EXAM ELBOW 3 VIEWS 2018-11-07 00:00:00 Shoulder Arthroscopy with Rotator 2018-05-19 00:00:00 Cuff Repair (Surg) Shoulder Arthroscopy with Rotator 2018-05-19 00:00:00 Cuff Repair Cataract Surgery 2014-05-31 00:00:00 Appendectomy 1954-05-31 00:00:00 Neuroplasty, Ulnar Nerve at Elbow (Surg) Results This patient has no known results. Assessments Condition Name Status Diagnosis Date Treating Clinici an Low back pain Active 2018-11-30 10:13:49 Cervical radiculopathy Active 2018-11-30 10:18:01 Neck pain Active 2018-11-30 10:18:05 Cervical disc prolapse with Active 2018-11-30 10:18:05 radiculopathy Degeneration of cervical intervertebral Active 10:18:05 disc Spinal stenosis in cervical region Active 2018-11-30 10 :18:05 Neck pain Active 2018-11-23 10:11:16 Cervical radiculopathy Active 2018-11-23 10:11:31 Cervical disc prolapse with Active 2018-11-23 17:26:00 radiculopathy Degeneration of cervical intervertebral Active 17:26:00 disc Spinal stenosis in cervical region Active 2018-11-23 17 :26:00 Tear of left rotator cuff Active 2018-11-07 09:32:43 Pain of left shoulder joint Active 2018-11-07 09:32:44 Neck pain Active 2018-11-07 09:38:17 Tear of left rotator cuff Active 2018-09-28 09:29:07 Cervical radiculopathy Active 2018-09-28 09:29:07 Muscle weakness Active 2018-09-28 09:29:07 Pain of left shoulder joint Active 2018-09-28 09:29:07 Abnormal posture Active 2018-09-28 09:29:07 Neck pain Active 2018-09-28 09:29:07 Pain in left arm Active 2018-09-26 09:22:08 Full thickness rotator cuff tear Active 2018-09-26 11:5 7:23 Pain in left arm Active 2018-09-26 09:22:08 Full thickness rotator cuff tear Active 2018-09-26 11:5 7:23 Tear of left rotator cuff Active 2018-09-21 09:33:36 Pain of left shoulder joint Active 2018-09-21 09:33:36 Muscle weakness Active 2018-09-21 09:33:36 Abnormal posture Active 2018-09-21 09:33:36 Tear of left rotator cuff Active 2018-09-21 09:33:36 Pain of left shoulder joint Active 2018-09-21 09:33:36 Muscle weakness Active 2018-09-21 09:33:36 Abnormal posture Active 2018-09-21 09:33:36 Tear of left rotator cuff Active 2018-09-19 09:35:06 Pain of left shoulder joint Active 2018-09-19 09:35:06 Muscle weakness Active 2018-09-19 09:35:06 Abnormal posture Active 2018-09-19 09:35:06 Tear of left rotator cuff Active 2018-09-19 09:35:06 Pain of left shoulder joint Active 2018-09-19 09:35:06 Muscle weakness Active 2018-09-19 09:35:06 Abnormal posture Active 2018-09-19 09:35:06 Tear of left rotator cuff Active 2018-09-14 09:41:34 Pain of left shoulder joint Active 2018-09-14 09:41:34 Muscle weakness Active 2018-09-14 09:41:34 Abnormal posture Active 2018-09-14 09:41:34 Tear of left rotator cuff Active 2018-09-14 09:41:34 Pain of left shoulder joint Active 2018-09-14 09:41:34 Muscle weakness Active 2018-09-14 09:41:34 Abnormal posture Active 2018-09-14 09:41:34 Tear of left rotator cuff Active 2018-09-12 11:05:52 Pain of left shoulder joint Active 2018-09-12 11:05:52 Muscle weakness Active 2018-09-12 11:05:52 Abnormal posture Active 2018-09-12 11:05:52 Tear of left rotator cuff Active 2018-09-12 11:05:52 Pain of left shoulder joint Active 2018-09-12 11:05:52 Muscle weakness Active 2018-09-12 11:05:52 Abnormal posture Active 2018-09-12 11:05:52 Tear of left rotator cuff Active 2018-09-07 10:11:55 Pain of left shoulder joint Active 2018-09-07 10:11:55 Muscle weakness Active 2018-09-07 10:11:55 Abnormal posture Active 2018-09-07 10:11:55 Tear of left rotator cuff Active 2018-09-07 10:11:55 Pain of left shoulder joint Active 2018-09-07 10:11:55 Muscle weakness Active 2018-09-07 10:11:55 Abnormal posture Active 2018-09-07 10:11:55 Tear of left rotator cuff Active 2018-09-05 11:48:23 Pain of left shoulder joint Active 2018-09-05 11:48:23 Muscle weakness Active 2018-09-05 11:48:23 Abnormal posture Active 2018-09-05 11:48:23 Tear of left rotator cuff Active 2018-09-05 11:48:23 Pain of left shoulder joint Active 2018-09-05 11:48:23 Muscle weakness Active 2018-09-05 11:48:23 Abnormal posture Active 2018-09-05 11:48:23 Tear of left rotator cuff Active 2018-09-01 09:45:28 Pain of left shoulder joint Active 2018-09-01 09:45:28 Muscle weakness Active 2018-09-01 09:45:28 Abnormal posture Active 2018-09-01 09:45:28 Tear of left rotator cuff Active 2018-09-01 09:45:28 Pain of left shoulder joint Active 2018-09-01 09:45:28 Muscle weakness Active 2018-09-01 09:45:28 Abnormal posture Active 2018-09-01 09:45:28 Tear of left rotator cuff Active 2018-08-30 10:31:55 Pain of left shoulder joint Active 2018-08-30 10:31:55 Muscle weakness Active 2018-08-30 10:31:55 Abnormal posture Active 2018-08-30 10:31:55 Tear of left rotator cuff Active 2018-08-30 10:31:55 Pain of left shoulder joint Active 2018-08-30 10:31:55 Muscle weakness Active 2018-08-30 10:31:55 Abnormal posture Active 2018-08-30 10:31:55 Cervical radiculopathy Active 2018-08-26 07:15:16 Muscle weakness Active 2018-08-26 07:15:16 Neck pain Active 2018-08-26 07:15:16 Pain of left shoulder joint Active 2018-08-26 07:15:16 Tear of left rotator cuff Active 2018-08-26 07:15:16 Abnormal posture Active 2018-08-26 07:15:16 Cervical radiculopathy Active 2018-08-26 07:15:16 Muscle weakness Active 2018-08-26 07:15:16 Neck pain Active 2018-08-26 07:15:16 Pain of left shoulder joint Active 2018-08-26 07:15:16 Tear of left rotator cuff Active 2018-08-26 07:15:16 Abnormal posture Active 2018-08-26 07:15:16 Tear of left rotator cuff Active 2018-08-22 10:21:34 Pain of left shoulder joint Active 2018-08-22 10:21:34 Muscle weakness Active 2018-08-22 10:21:34 Abnormal posture Active 2018-08-22 10:21:34 Tear of left rotator cuff Active 2018-08-15 09:36:32 Pain of left shoulder joint Active 2018-08-15 09:36:32 Muscle weakness Active 2018-08-15 09:36:32 Abnormal posture Active 2018-08-15 09:36:32 Tear of left rotator cuff Active 2018-08-10 09:34:11 Pain of left shoulder joint Active 2018-08-10 09:34:11 Muscle weakness Active 2018-08-10 09:34:11 Abnormal posture Active 2018-08-10 09:34:11 Tear of left rotator cuff Active 2018-08-08 09:47:59 Pain of left shoulder joint Active 2018-08-08 09:47:59 Muscle weakness Active 2018-08-08 09:47:59 Abnormal posture Active 2018-08-08 09:47:59 Tear of left rotator cuff Active 2018-08-03 09:34:24 Pain of left shoulder joint Active 2018-08-03 09:34:24 Muscle weakness Active 2018-08-03 09:34:24 Abnormal posture Active 2018-08-03 09:34:24 Tear of left rotator cuff Active 2018-08-01 09:45:14 Pain of left shoulder joint Active 2018-08-01 09:45:14 Muscle weakness Active 2018-08-01 09:45:14 Abnormal posture Active 2018-08-01 09:45:14 Abnormal posture Active 2018-07-29 09:34:02 Tear of left rotator cuff Active 2018-07-29 09:34:02 Pain of left shoulder joint Active 2018-07-29 09:34:02 Muscle weakness Active 2018-07-29 09:34:02 Abnormal posture Active 2018-07-29 09:34:02 Tear of left rotator cuff Active 2018-07-29 09:34:02 Pain of left shoulder joint Active 2018-07-29 09:34:02 Muscle weakness Active 2018-07-29 09:34:02 Pain of left shoulder joint Active 2018-07-22 09:19:10 Muscle weakness Active 2018-07-22 09:19:10 Tear of left rotator cuff Active 2018-07-22 09:19:10 Abnormal posture Active 2018-07-22 09:19:10 Pain of left shoulder joint Active 2018-07-22 09:19:10 Muscle weakness Active 2018-07-22 09:19:10 Tear of left rotator cuff Active 2018-07-22 09:19:10 Abnormal posture Active 2018-07-22 09:19:10 Pain of left shoulder joint Active 2018-07-20 09:35:55 Muscle weakness Active 2018-07-20 09:35:55 Tear of left rotator cuff Active 2018-07-20 09:35:55 Abnormal posture Active 2018-07-20 09:35:55 Pain of left shoulder joint Active 2018-07-20 09:35:55 Muscle weakness Active 2018-07-20 09:35:55 Tear of left rotator cuff Active 2018-07-20 09:35:55 Abnormal posture Active 2018-07-20 09:35:55 Follow-up orthopedic assessment Active 2018-07-31 12:07 :55 Cervical radiculopathy Active 2018-07-15 08:17:12 Muscle weakness Active 2018-07-15 08:17:12 Neck pain Active 2018-07-15 08:17:12 Pain of left shoulder joint Active 2018-07-15 08:17:40 Tear of left rotator cuff Active 2018-07-15 08:17:40 Abnormal posture Active 2018-07-15 08:17:40 Cervical radiculopathy Active 2018-07-15 08:17:12 Muscle weakness Active 2018-07-15 08:17:12 Neck pain Active 2018-07-15 08:17:12 Pain of left shoulder joint Active 2018-07-15 08:17:40 Tear of left rotator cuff Active 2018-07-15 08:17:40 Abnormal posture Active 2018-07-15 08:17:40 Follow-up orthopedic assessment Active 2018-07-31 12:07 :55 Pain of left shoulder joint Active 2018-07-13 10:26:36 Muscle weakness Active 2018-07-13 10:26:36 Tear of left rotator cuff Active 2018-07-13 10:26:36 Abnormal posture Active 2018-07-13 10:26:36 Pain of left shoulder joint Active 2018-07-13 10:26:36 Muscle weakness Active 2018-07-13 10:26:36 Tear of left rotator cuff Active 2018-07-13 10:26:36 Abnormal posture Active 2018-07-13 10:26:36 Pain of left shoulder joint Active 2018-07-08 09:00:48 Muscle weakness Active 2018-07-08 09:00:48 Tear of left rotator cuff Active 2018-07-08 09:00:48 Abnormal posture Active 2018-07-08 09:00:48 Pain of left shoulder joint Active 2018-07-08 09:00:48 Muscle weakness Active 2018-07-08 09:00:48 Tear of left rotator cuff Active 2018-07-08 09:00:48 Abnormal posture Active 2018-07-08 09:00:48 Pain of left shoulder joint Active 2018-07-04 09:44:14 Muscle weakness Active 2018-07-04 09:44:14 Tear of left rotator cuff Active 2018-07-04 09:44:14 Abnormal posture Active 2018-07-04 09:44:14 Pain of left shoulder joint Active 2018-07-04 09:44:14 Muscle weakness Active 2018-07-04 09:44:14 Tear of left rotator cuff Active 2018-07-04 09:44:14 Abnormal posture Active 2018-07-04 09:44:14 Neck pain Active 2018-06-24 10:43:31 Cervical radiculopathy Active 2018-06-24 10:43:32 Pain of left shoulder joint Active 2018-06-24 10:07:54 Muscle weakness Active 2018-06-24 10:07:54 Tear of left rotator cuff Active 2018-06-24 10:07:54 Abnormal posture Active 2018-06-24 10:07:54 Neck pain Active 2018-06-24 10:43:31 Cervical radiculopathy Active 2018-06-24 10:43:32 Pain of left shoulder joint Active 2018-06-24 10:07:54 Muscle weakness Active 2018-06-24 10:07:54 Tear of left rotator cuff Active 2018-06-24 10:07:54 Abnormal posture Active 2018-06-24 10:07:54 Pain of left shoulder joint Active 2018-06-22 11:40:30 Muscle weakness Active 2018-06-22 11:40:30 Tear of left rotator cuff Active 2018-06-22 11:40:30 Abnormal posture Active 2018-06-22 11:40:30 Pain of left shoulder joint Active 2018-06-22 11:40:30 Muscle weakness Active 2018-06-22 11:40:30 Tear of left rotator cuff Active 2018-06-22 11:40:30 Abnormal posture Active 2018-06-22 11:40:30 Pain of left shoulder joint Active 2018-06-17 09:43:32 Muscle weakness Active 2018-06-17 09:43:32 Tear of left rotator cuff Active 2018-06-17 09:43:32 Abnormal posture Active 2018-06-17 09:43:32 Pain of left shoulder joint Active 2018-06-17 09:43:32 Muscle weakness Active 2018-06-17 09:43:32 Tear of left rotator cuff Active 2018-06-17 09:43:32 Abnormal posture Active 2018-06-17 09:43:32 Pain of left shoulder joint Active 2018-06-15 10:13:10 Muscle weakness Active 2018-06-15 10:13:10 Tear of left rotator cuff Active 2018-06-15 10:13:10 Abnormal posture Active 2018-06-15 10:13:10 Pain of left shoulder joint Active 2018-06-15 10:13:10 Muscle weakness Active 2018-06-15 10:13:10 Tear of left rotator cuff Active 2018-06-15 10:13:10 Abnormal posture Active 2018-06-15 10:13:10 Pain of left shoulder joint Active 2018-06-10 13:25:16 Muscle weakness Active 2018-06-10 13:25:16 Tear of left rotator cuff Active 2018-06-10 13:25:16 Abnormal posture Active 2018-06-10 13:25:16 Pain of left shoulder joint Active 2018-06-10 13:25:16 Muscle weakness Active 2018-06-10 13:25:16 Tear of left rotator cuff Active 2018-06-10 13:25:16 Abnormal posture Active 2018-06-10 13:25:16 Pain of left shoulder joint Active 2018-06-07 16:29:24 Muscle weakness Active 2018-06-07 16:29:27 Tear of left rotator cuff Active 2018-06-07 16:30:03 Abnormal posture Active 2018-06-07 16:30:04 Pain of left shoulder joint Active 2018-06-07 16:29:24 Muscle weakness Active 2018-06-07 16:29:27 Tear of left rotator cuff Active 2018-06-07 16:30:03 Abnormal posture Active 2018-06-07 16:30:04 Pain of left shoulder joint Active 2018-06-03 09:00:16 Glenoid labrum detachment Active 2018-06-03 09:00:18 Pain of left shoulder joint Active 2018-06-03 09:00:16 Glenoid labrum detachment Active 2018-06-03 09:00:18 Pain of left shoulder joint Active 2018-04-15 08:21:12 Full thickness rotator cuff tear Active 2018-04-15 08:5 6:17 Glenoid labrum detachment Active 2018-04-15 08:57:41 Pain of left elbow joint Active 2018-03-23 14:58:16 Glenoid labrum detachment Active 2018-03-23 14:58:28 Partial thickness rotator cuff tear Active 2018-04-10 1 3:05:37 Encounters Start End Encounter Admission Attending Care Care Encounter Date/Time Date/Time Type Type Clinicians Facility Department ID 2018-11-30 2018-11-30 Alex Tanner [id number] 00:00:00 00:00:00 Yasmin, Surgical Surgical [id number] MD: [address] [facility], [place] [address], Ph. 2018-11-23 2018-11-23 Alex Tanner [id number] 00:00:00 00:00:00 Yasmin, Surgical Surgical [id number] MD: [address] [facility], [address], [place] [address], Ph. 2018-11-07 2018-11-07 Luis Antonio Dowd [id number] 00:00:00 00:00:00 Dena, Surgical Surgical [id number] DO: [address] [facility], [place] [address], Ph. 2018-09-28 2018-09-28 Jagruti Tanner [id number]_201 00:00:00 00:00:00 Kacie, Surgical Surgical [id number] DPT: [address] [facility] [address], [place] [address], Ph. 2018-09-26 2018-09-26 Luis Antonio Dowd [id number] 00:00:00 00:00:00 Wertman, Surgical Surgical [id number] DO: [address] [facility], [place] [address], Ph. 2018-09-26 2018-09-26 Luis Antonio Arevalot [id number]_ 201 00:00:00 00:00:00 Wertman, Surgical Surgical [id number] DO: [address] [facility], [place] [address], Ph. 2018-09-21 2018-09-21 Rosalinda Washingtoneret [id number] 00:00:00 00:00:00 Victoria, Surgical Surgical [id number] BIOLOGICAL INSPECTOR: [address] [facility] [address], [place] [address], Ph. 2018-09-21 2018-09-21 Crystal [place] [id number] 00:00:00 00:00:00 Lucas, Surgical Surgical [id number] BIOLOGICAL INSPECTOR: [address] [facility], [address], [place] [address], Ph. 2018-09-19 2018-09-19 Crystal [place] [id number] 00:00:00 00:00:00 Victoria, Surgical Surgical [id number] BIOLOGICAL INSPECTOR: [address] [facility] [address], [place] [address], Ph. 2018-09-19 2018-09-19 Crystal [place] [id number] 00:00:00 00:00:00 Victoria, Surgical Surgical [id number] BIOLOGICAL INSPECTOR: [address] [facility] [address], [place] [address], Ph. 2018-09-14 2018-09-14 Anamika Washingtoneret [id number] 3 00:00:00 00:00:00 Llyod, BIOLOGICAL INSPECTOR: Surgical Surgical [id number] [address] [facility] [address], [place] [address], Ph. 2018-09-14 2018-09-14 Anamika Washingtoneret [id number] 1 00:00:00 00:00:00 Llyod, BIOLOGICAL INSPECTOR: Surgical Surgical [id number] [address] [facility] [address], [place] [address], Ph. 2018-09-12 2018-09-12 Anamika Washingtoneret [id number] 3 00:00:00 00:00:00 Llyod, BIOLOGICAL INSPECTOR: Surgical Surgical [id number] [address] [facility] [address], [place] [address], Ph. 2018-09-12 2018-09-12 Anamika Washingtoneret [id number] 1 00:00:00 00:00:00 Llyod, BIOLOGICAL INSPECTOR: Surgical Surgical [id number] [address] [facility] [address], [place] [address], Ph. 2018-09-07 2018-09-07 Crystal Flores Washingtoneret [id number] 00:00:00 00:00:00 Victoria, Surgical Surgical [id number] BIOLOGICAL INSPECTOR: [address] [facility] [address], [place] [address], Ph. 2018-09-07 2018-09-07 Crystal Flores [place] [id number] 00:00:00 00:00:00 Lucas, Surgical Surgical [id number] BIOLOGICAL INSPECTOR: [address] [facility] [address], [place] [address], Ph. 2018-09-05 2018-09-05 Anamika Washingtoneret [id number] 3 00:00:00 00:00:00 Llyod, BIOLOGICAL INSPECTOR: Surgical Surgical [id number] [address] [facility] [address], [place] [address], Ph. 2018-09-05 2018-09-05 Anamika Washingtoneret [id number] 1 00:00:00 00:00:00 Llyod, BIOLOGICAL INSPECTOR: Surgical Surgical [id number] [address] [facility] [address], [place] [address], Ph. 2018-09-01 2018-09-01 Anamika Tanner [place] [id number] 3 00:00:00 00:00:00 Llyod, BIOLOGICAL INSPECTOR: Surgical Surgical [id number] [address] [facility] [address], [place] [address], Ph. 2018-09-01 2018-09-01 Anamika Washingtoneret [id number] 1 00:00:00 00:00:00 Llyod, BIOLOGICAL INSPECTOR: Surgical Surgical [id number] [address] [facility] [address], [place] [address], Ph. 2018-08-30 2018-08-30 Anamika Croucht [place] [id number] 3_ 00:00:00 00:00:00 Llyod, BIOLOGICAL INSPECTOR: Surgical Surgical [id number] [address] [facility] [address], [place] [address], Ph. 2018-08-30 2018-08-30 Anamika Tanner [place] [id number] 1 00:00:00 00:00:00 Llyod, BIOLOGICAL INSPECTOR: Surgical Surgical [id number] [address] [facility] [address], [place] [address], Ph. 2018-08-26 2018-08-26 Jagruti Toya Tanner [place] [id number] 3 00:00:00 00:00:00 Hester, Surgical Surgical [id number] DPT: [address] [facility] [address], [place] [address], Ph. 2018-08-26 2018-08-26 Jagruti Washingtoneret [id number] 00:00:00 00:00:00 Hester, Surgical Surgical [id number] DPT: [address] [facility] [address], [place] [address], Ph. 2018-08-22 2018-08-22 Rosalinda Croucht [id number] 00:00:00 00:00:00 Lucas, Surgical Surgical [id number] BIOLOGICAL INSPECTOR: [address] [facility] [address], [place] [address], Ph. 2018-08-15 2018-08-15 Anamika Washingtoneret [id number] 00:00:00 00:00:00 Llyod, BIOLOGICAL INSPECTOR: Surgical Surgical [id number] [address] [facility] [address], [place] [address], Ph. 2018-08-10 2018-08-10 Rosalinda Croucht [id number] 00:00:00 00:00:00 Lucas, Surgical Surgical [id number] BIOLOGICAL INSPECTOR: [address] [facility] [address], [place] [address], Ph. 2018-08-08 2018-08-08 Rosalinda Croucht [id number] 00:00:00 00:00:00 Victoria, Surgical Surgical [id number] BIOLOGICAL INSPECTOR: [address] [facility] [address], [place] [address], Ph. 2018-08-03 2018-08-03 Rosalinda Croucht [id number] 00:00:00 00:00:00 Victoria, Surgical Surgical [id number] BIOLOGICAL INSPECTOR: [address] [facility] [address], [place] [address], Ph. 2018-08-01 2018-08-01 Anamika Washingtoneret [id number] 00:00:00 00:00:00 Llyod, BIOLOGICAL INSPECTOR: Surgical Surgical [id number] [address] [facility] [address], [place] [address], Ph. 2018-07-29 2018-07-29 Jagruti Washingtoneret [id number] 3 00:00:00 00:00:00 Hester, Surgical Surgical [id number] DPT: [address] [facility] [address], [place] [address], Ph. 2018-07-29 2018-07-29 Jagruti Washingtoneret [id number] 1 00:00:00 00:00:00 Hester, Surgical Surgical [id number] DPT: [address] [facility] [address], [place] [address], Ph. 2018-07-22 2018-07-22 Anamika Tanner [place] [id number] 3 00:00:00 00:00:00 Llyod, BIOLOGICAL INSPECTOR: Surgical Surgical [id number] [address] [facility] [address], [place] [address], Ph. 2018-07-22 2018-07-22 Anamika Tanner [place] [id number] 1 00:00:00 00:00:00 Llyod, BIOLOGICAL INSPECTOR: Surgical Surgical [id number] [address] [facility] [address], [place] [address], Ph. 2018-07-20 2018-07-20 Anamika Croucht [place] [id number] 3 00:00:00 00:00:00 Llyod, BIOLOGICAL INSPECTOR: Surgical Surgical [id number] [address] [facility] [address], [place] [address], Ph. 2018-07-20 2018-07-20 Anamika Croucht [place] [id number] 1 00:00:00 00:00:00 Llyod, BIOLOGICAL INSPECTOR: Surgical Surgical [id number] [address] [facility] [address], [place] [address], Ph. 2018-07-15 2018-07-15 Jagruti Washingtoneret [id number] 3 00:00:00 00:00:00 Hester, Surgical Surgical [id number] DPT: [address] [facility] [address], [place] [address], Ph. 2018-07-15 2018-07-15 Jagruti Washingtoneret [id number] 00:00:00 00:00:00 Hester, Surgical Surgical [id number] DPT: [address] [facility] [address], [place] [address], Ph. 2018-07-13 2018-07-13 Anamika Washingtoneret [id number] 3 00:00:00 00:00:00 Llyod, BIOLOGICAL INSPECTOR: Surgical Surgical [id number] [address], [place] [address], Ph. 2018-07-13 2018-07-13 Anamika Washingtoneret [id number] 00:00:00 00:00:00 Llyod, BIOLOGICAL INSPECTOR: Surgical Surgical [id number] [address], [place] [address], Ph. 2018-07-08 2018-07-08 Jagruti Washingtoneret [id number] 00:00:00 00:00:00 Hester, Surgical Surgical [id number] DPT: [address], [place] [address], Ph. 2018-07-08 2018-07-08 Jagruti Washingtone[place] [id number] 00:00:00 00:00:00 Hester, Surgical Surgical [id number] DPT: [address], [place] [address], Ph. 2018-07-04 2018-07-04 Anamika Washingtoneret [id number] 3 00:00:00 00:00:00 Llyod, BIOLOGICAL INSPECTOR: Surgical Surgical [id number] [address], [place] [address], Ph. 2018-07-04 2018-07-04 Anamika Washingtoneret [id number] 1 00:00:00 00:00:00 Llyod, BIOLOGICAL INSPECTOR: Surgical Surgical 35[address] [address], [place] [address], Ph. 2018-06-24 2018-06-24 Anamika Washingtoneret [id number] 3_ 00:00:00 00:00:00 Llyod, BIOLOGICAL INSPECTOR: Surgical Surgical [id number] [address], [place] [address], Ph. 2018-06-24 2018-06-24 Anamika Washingtone[place] [id number] 1 00:00:00 00:00:00 Llyod, BIOLOGICAL INSPECTOR: Surgical Surgical [id number] [address], [place] [address], Ph. 2018-06-22 2018-06-22 Crystal Flores Washing[place] [id number] 00:00:00 00:00:00 Lucas, Surgical Surgical [id number] BIOLOGICAL INSPECTOR: [address], [place] [address], Ph. 2018-06-22 2018-06-22 Crystal Flores [place] [id number] 00:00:00 00:00:00 Victoria, Surgical Surgical [id number] BIOLOGICAL INSPECTOR: [address], [place] [address], Ph. 2018-06-17 2018-06-17 Anamika Washingtoneret [id number] 3_201 00:00:00 00:00:00 Llyod, BIOLOGICAL INSPECTOR: Surgical Surgical [id number] [address], [place] [address], Ph. 2018-06-17 2018-06-17 Anamika Washingtoneret [id number] 1 00:00:00 00:00:00 Llyod, BIOLOGICAL INSPECTOR: Surgical Surgical [id number] [address], [place] [address], Ph. 2018-06-15 2018-06-15 Rosalinda Croucht [id number] 00:00:00 00:00:00 Lucas, Surgical Surgical [id number] BIOLOGICAL INSPECTOR: [address], [place] [address], Ph. 2018-06-15 2018-06-15 Rosalinda Croucht [id number] 00:00:00 00:00:00 Victoria, Surgical Surgical [id number] BIOLOGICAL INSPECTOR: [address], [place] [address], Ph. 2018-06-10 2018-06-10 Anamika Washingtoneret [id number] 1_201 00:00:00 00:00:00 Llyod, BIOLOGICAL INSPECTOR: Surgical Surgical [address] [address], [place] [address], Ph. 2018-06-10 2018-06-10 Anamika Washingtoneret [id number] 3_201 00:00:00 00:00:00 Llyod, BIOLOGICAL INSPECTOR: Surgical Surgical [address] [address], [place] [address], Ph. 2018-06-06 2018-06-06 Jagrutiani Washingtone[place] [id number] 1_201 00:00:00 00:00:00 Hester, Surgical Surgical 73741 DPT: [address], [place] [address], Ph. 2018-06-06 2018-06-06 Jagruti Washingtone[place] [id number] 3_201 00:00:00 00:00:00 Hester, Surgical Surgical [id number] DPT: [address], [place] [address], Ph. 2018-06-03 2018-06-03 Stefan Washingtoneret [id number] 00:00:00 00:00:00 Gabriel Jovel Surgical Surgical [id number] MD John: [facility] [address] [place] [address] Road, [address], [place] [address], Ph. 2018-06-03 2018-06-03 Stefan Croucht [id number] 00:00:00 00:00:00 Gabriel Jovel Surgical Surgical [id number] MD John: [facility] [address] [place] [address], [address], [place] [address], Ph. 2018-05-19 2018-05-19 Stefan Croucht [id number] 00:00:00 00:00:00 Gabriel Jovel Surgical Surgical [id number] MD John: [facility] [address] [place] [address], [address], [place] [address], Ph. 2018-05-19 2018-05-19 Stefan Washingtone[place] [id number] 00:00:00 00:00:00 Gabriel Jovel Surgical Surgical [id number] MD John: [facility] [address] [place] [address], [address], [place] [address], Ph. [phone] 2018-04-15 2018-04-15 Stefanneela Washingtoneret [id number] 00:00:00 00:00:00 Gabriel Jovel Surgical Surgical [id number] MD John: [facility] [address] [place] [address], [address], [place] [address], Ph. 2018-03-23 2018-03-23 Stefan Tanner [place] [id number] 00:00:00 00:00:00 Gabriel Jovel Surgical Surgical [id number] MD John: [facility] [address] [place] [address] Road, [address], [place] [address], Ph. Social History Smoking Status Start Date Stop Date Heavy Tobacco Smoker Light Tobacco Smoker Vital Signs Vital Name Observation Time Observation Value Comments BP Diastolic 2018-11-30 00:00:00 70 mm[Hg] Height 2018-11-30 00:00:00 71 [in_i] BMI (Body Mass Index) 2018-11-30 00:00:00 23.7 kg/m2 BP Systolic 2018-11-30 00:00:00 108 mm[Hg] Body Weight 2018-11-30 00:00:00 170 [lb_av] BP Diastolic 2018-11-23 00:00:00 72 mm[Hg] Height 2018-11-23 00:00:00 71 [in_i] BMI (Body Mass Index) 2018-11-23 00:00:00 23.7 kg/m2 BP Systolic 2018-11-23 00:00:00 109 mm[Hg] Body Weight 2018-11-23 00:00:00 170 [lb_av] Height 2018-11-07 00:00:00 71 [in_i] BMI (Body Mass Index) 2018-11-07 00:00:00 23.7 kg/m2 Body Weight 2018-11-07 00:00:00 170 [lb_av] BP Diastolic 2018-09-26 00:00:00 74 mm[Hg] Height 2018-09-26 00:00:00 71 [in_i] BMI (Body Mass Index) 2018-09-26 00:00:00 23.7 kg/m2 BP Systolic 2018-09-26 00:00:00 124 mm[Hg] Body Weight 2018-09-26 00:00:00 170 [lb_av] BP Diastolic 2018-07-15 00:00:00 84 mm[Hg] Height 2018-07-15 00:00:00 71 [in_i] BMI (Body Mass Index) 2018-07-15 00:00:00 23.7 kg/m2 BP Systolic 2018-07-15 00:00:00 136 mm[Hg] Body Weight 2018-07-15 00:00:00 170 [lb_av] BP Diastolic 2018-06-24 00:00:00 79 mm[Hg] Height 2018-06-24 00:00:00 71 [in_i] BMI (Body Mass Index) 2018-06-24 00:00:00 24.5 kg/m2 BP Systolic 2018-06-24 00:00:00 119 mm[Hg] Body Weight 2018-06-24 00:00:00 176 [lb_av] BP Diastolic 2018-06-03 00:00:00 79 mm[Hg] Height 2018-06-03 00:00:00 71 [in_i] BMI (Body Mass Index) 2018-06-03 00:00:00 24.5 kg/m2 BP Systolic 2018-06-03 00:00:00 119 mm[Hg] Body Weight 2018-06-03 00:00:00 176 [lb_av] BP Diastolic 2018-04-15 00:00:00 88 mm[Hg] Height 2018-04-15 00:00:00 71 [in_i] BMI (Body Mass Index) 2018-04-15 00:00:00 25 kg/m2 BP Systolic 2018-04-15 00:00:00 177 mm[Hg] Body Weight 2018-04-15 00:00:00 179.6 [lb_av] Hospital Discharge Instructions 1. Tear of left rotator cuff 2. Pain of left shoulder joint XR, shoulder XR, elbow 3. Neck pain XR, cervical spine Discussion Note: None recorded. Patient educational handouts: No information available.None recorded. Discussion Note: None recorded. Patient educational handouts: No information available.
== END 2020-06-24 11:10 | disposition home or self-care (01) ==
LOC: OROUT 05:48
PROVIDERS: ATTEND Surgery
DX: K52.89 Other specified noninfective gastroenteritis and colitis (principal); K56.699 Other intestinal obstruction unspecified as to partial versus complete obstruction; K57.30 Diverticulosis of large intestine without perforation or abscess without bleeding; J44.9 Chronic obstructive pulmonary disease, unspecified; I71.4 Abdominal aortic aneurysm, without rupture; Z01.812 Encounter for preprocedural laboratory examination; Z20.822 Contact with and (suspected) exposure to COVID-19; F10.21 Alcohol dependence, in remission; F17.210 Nicotine dependence, cigarettes, uncomplicated; I10 Essential (primary) hypertension; E78.00 Pure hypercholesterolemia, unspecified; I25.2 Old myocardial infarction; Z79.899 Other long term (current) drug therapy; Z86.73 Personal history of transient ischemic attack (TIA), and cerebral infarction without residual deficits; E53.9 Vitamin B deficiency, unspecified; M79.2 Neuralgia and neuritis, unspecified; Z86.69 Personal history of other diseases of the nervous system and sense organs
CPT/HCPCS: 45380; 36415; 85027; 0241U; 80048; 88305 ×2; 00811; J2370; J2704; J3490; C9803; 811